=== PATIENT | female | born 1995 | race Caucasian/White ===

== ENCOUNTER 2020-02-27 12:55 | Outpatient (REF) | payer OTHER, SELFPAY ==
[2020-02-28 14:19] LABS: CT PCR NOT DETECTED (Not Detect.); NG PCR NOT DETECTED (Not Detect.)
[2020-03-01 09:42] LABS: BV Int Neg Control Negative (Negative); BV Int Pos Control Positive (Positive)
== END 2020-02-27 12:56 | disposition home or self-care (01) ==
LOC: HO.LAB 12:55
PROVIDERS: PCP Internal Medicine; Visit Provider Advanced Practice Midwife
DX: Z01.419 Encounter for gynecological examination (general) (routine) without abnormal findings (principal); Z20.2 Contact with and (suspected) exposure to infections with a predominantly sexual mode of transmission; Q89.9 Congenital malformation, unspecified; N89.8 Other specified noninflammatory disorders of vagina; Z30.09 Encounter for other general counseling and advice on contraception
CPT/HCPCS: 87480; 87491; 87510; 87591; 87660; 88142

== ENCOUNTER 2020-05-28 13:46 | Outpatient (REF) | payer OTHER, SELFPAY ==
--- NOTE | ~2020-05-28 | XR_ITS ---
EXAMINATION: XR SOFT TISSUE NECK CLINICAL INDICATION: Localized swelling, mass or lump COMPARISON: None TECHNIQUE: FINDINGS: Soft tissue films of the neck demonstrate a normal larynx, pharynx and upper trachea. No soft tissue swelling or opaque foreign body is demonstrated. Bony structures are normal. Visualized lung apices are clear. XR/XR soft tissue neck IMPRESSION: Unremarkable examination.
== END 2020-05-28 13:47 | disposition home or self-care (01) ==
LOC: HO.XRAY 13:46
PROVIDERS: PCP Physician Assistant; Visit Provider Nurse Practitioner Family
DX: R22.1 Localized swelling, mass and lump, neck (principal); R42 Dizziness and giddiness
CPT/HCPCS: 70360

== ENCOUNTER 2020-08-16 13:25 | Outpatient (REF) | payer OTHER, SELFPAY ==
[2020-08-16 16:08] LABS: Thyroid Stimulating Hormone 3.53 uIU/mL (0.32-4.0)
[2020-08-17 06:02] LABS: Thyroglobulin Antibodies <1 IU/mL (< or = 1); Thyroid Peroxidase Antibodies <1 IU/mL (<9)
== END 2020-08-16 13:26 | disposition home or self-care (01) ==
LOC: HO.LAB 13:25
PROVIDERS: PCP Internal Medicine; Referring Provider Internal Medicine; Visit Provider Internal Medicine Endocrinology, Diabetes & Metabolism
DX: E04.1 Nontoxic single thyroid nodule (principal)
CPT/HCPCS: 36415; 84439; 84443; 86376; 86800; 99202

== ENCOUNTER 2020-09-09 10:40 | Outpatient (REF) | payer OTHER, SELFPAY ==
--- NOTE | 2020-09-09 11:08 | PM.OP ---
Brief Operative Note Date of Service: 09/09/20 Pre-op diagnosis: Right side nodule Post-op diagnosis: same Procedure: This procedure was explained to the patient. Alternatives, risks and benefits were discussed. Written consent was obtained. After sterile preparation of the skin, fine-needle aspiration biopsy of right side thyroid nodule size 3.1 x 1.5 x 1.9 cm was performed under direct ultrasound guidance to confirm accurate needle placement. Three passes were performed with 27 gauge needles. Sample was submitted to cytology, initial cytology reading was adequate. 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 Patient tolerated procedure well. Aftercare instructions were provided. Impression: uncomplicated fine-needle aspiration biopsy of right side thyroid nodule under direct ultrasound guidance. Surgeon: Ramiro Berger MD Anesthesia: local (Lidocaine 1% 1 mL) Was an [employer] Machine Tender used for this Procedure?: No Estimated blood loss (mL): 0 Condition: stable Disposition: same day
== END 2020-09-09 10:41 | disposition home or self-care (01) ==
LOC: HO.US 10:40
PROVIDERS: Visit Provider Internal Medicine Endocrinology, Diabetes & Metabolism
DX: E04.1 Nontoxic single thyroid nodule (principal)
CPT/HCPCS: 10005; 88172; 88173

== ENCOUNTER → 2020-09-28 13:36 | Outpatient (BNVA) | payer OTHER, SELFPAY | PROVIDERS: PCP Internal Medicine; Visit Provider Internal Medicine Endocrinology, Diabetes & Metabolism | DX: E04.1 Nontoxic single thyroid nodule (principal) | CPT/HCPCS: 99212 ==

== ENCOUNTER 2020-10-05 12:52 | Outpatient (REF) | payer OTHER, SELFPAY ==
[2020-10-06 10:04] LABS: BV Int Neg Control Negative (Negative); BV Int Pos Control Positive (Positive)
== END 2020-10-05 12:53 | disposition home or self-care (01) ==
LOC: HO.LAB 12:52
PROVIDERS: PCP Internal Medicine; Visit Provider Advanced Practice Midwife
DX: R10.2 Pelvic and perineal pain (principal); N89.8 Other specified noninflammatory disorders of vagina
CPT/HCPCS: 87480; 87510; 87660; 99212

== ENCOUNTER 2021-03-29 15:08 | Emergency (ER) | payer OTHER, SELFPAY ==
[2021-03-29 15:17] VITALS: BP 104/68; PULSE 83; RESP 18; TEMP 36.9; O2SAT 100; BMI 23.4
[2021-03-29 15:57] LABS: COVID-19 Test Negative (Negative); IDNOW Serial# 9DD0AD1C
--- NOTE | 2021-03-29 17:42 | ED.URI ---
HPI - URI/Sore Throat General Chief Complaint: Upper Respiratory Symptoms Stated Complaint: cough Time Seen by Provider: 03/29/21 17:04 Source: patient Mode of arrival: ambulatory Limitations: no limitations History of Present Illness HPI Narrative: 25-year-old female presents to ED for coughing since Sunday. Patient states her son and daughter were sick (coughing) 1st last week Sunday with coughing and then got better and now she had symptoms. Patient states both her kids tested negative for COVID. Patient denies any chest pain, shortness of breath, swelling of lower extremities, coughing up blood, fever, chills, calf pain, recent long travel, birht control use or recent surgery. Patient states she is vaccinated against COVID. MD elicited complaint: cough Related Data Previous Rx's Medication Instructions Recorded ibuprofen 800 mg tablet 800 mg PO Q8H PRN 10 Days #30 tab 05/27/20 benzonatate 100 mg capsule 100 mg PO TID PRN 5 Days #15 cap 03/29/21 Allergies Allergy/AdvReac Type Severity Reaction Status Date / Time seasonal allergies Allergy Intermediate itchy Uncoded 03/29/21 17:27 Review of Systems Review of Systems: Yes all other systems are reviewed and are negative Constitutional: Constitutional: Reports as per HPI, Reports no additional constitutional complaints, Denies anorexia, Denies body ache(s), Denies fever(s), Denies frequent falls and Denies headache(s) Eyes: Eyes: Reports as per HPI and Reports no additional eye complaints ENT: Reports system reviewed and no additional complaints, except as documented, Reports as per HPI and Denies headache(s) Cardiovascular: Cardiovascular: Reports as per HPI, Reports no additional cardiovascular complaints, Denies chest pain, Denies chest pain at rest and Denies dyspnea Respiratory: Respiratory: Reports as per HPI, Reports no additional respiratory complaints, Reports cough and Denies dyspnea Gastrointestinal: Gastrointestinal: Reports as per HPI and Reports no additional gastrointestinal complaints Genitourinary: Genitourinary: Reports no additional female genitourinary complaints and Reports as per HPI Musculoskeletal: Musculoskeletal: Reports no additional musculoskeletal complaints and Reports as per HPI Neurologic: Reports system reviewed and no additional complaints, except as documented, Reports as per HPI, Denies frequent falls and Denies headache(s) Psychiatric: Psychiatric: Reports no additional psychiatric complaints and Reports as per HPI [facility] Past Medical History Medical History Goiter Migraine with aura Swollen neck Thyroid nodule Surgical History No history of previous surgery Family History Family History Mother Diabetes Thyroid disease Father No problems noted. Other Mental health disorder Social History Social History Housing: House Alcohol intake: never Patient Tobacco Use Status: Never used Tobacco Advance Directives: No Advance Directives Information Provided: No Current occupational status: unemployed Sexual orientation: Straight/Heterosexual Gender identity: Female Physical Exam Vital Signs: Vital Signs: Last Vital Signs Temp 98.4 F 03/29/21 15:17 Pulse 83 03/29/21 15:17 Resp 18 03/29/21 15:17 BP 104/68 03/29/21 15:17 Pulse Ox 100 03/29/21 15:17 BMI result Body Mass Index 23.4 Const: General: cooperative, healthy appearing, comfortable, no acute distress, well developed, alert, awake and Physically active Orientation/consciousness: patient oriented x3 HENMT: Head: Yes normal to inspection, Yes No palpable skull fracture present, Yes normocephalic, Yes atraumatic, Yes abrasion, No Acrocyanosis present, No Wilhelm's sign, No contusion, No cranial bruits, No hematoma, No laceration, No occipital foramen tenderness, No palpable skull fracture, No raccoon eyes, No scalp lesion, No scalp tenderness, No Temporal artery tenderness present and No periorbital ecchymosis Eyes: General: appearance normal, both eyes and all related structures Neck: Neck: Yes normal visual inspection, Yes full ROM, Yes no lymphadenopathy, Yes no meningeal signs, Yes trachea midline, Yes supple, No anterior neck swelling and No tender Chest: Chest palpation & inspection: normal inspection of the chest and normal palpation of entire chest wall Resp: Effort & Inspection: normal respiratory effort and able to speak in complete sentences Auscultation: clear to auscultation bilaterally Cardio: Jugular venous distension: no JVD Heart sounds: S1 normal heart sound present and S2 normal heart sound present GI: Inspection: Yes normal to inspection and No abdominal wall ecchymosis Palpation (GI): Soft to palpation, not firm, nontender, no guarding and not rigid : General: No CVA tenderness and Yes no CVA tenderness Back/Spine/Pelvis: Back: no CVA tenderness, No CVA tenderness and No back tenderness Skin: General skin exam: no rashes or lesions noted and elasticity normal Neuro: General: patient oriented x3, gait normal, no meningeal signs and CN's II-XI intact bilaterally Cranial nerves: Yes CN's II-XII intact bilaterally Extrem: Other: Lower extremities negative for swelling, pitting edema, or calf tenderness. General: Yes normal to inspection and Yes full ROM Psych: Appearance: grossly normal, well kempt and not disheveled Course Course Course Narrative: COVID [place] was sent. Reevaluation(s) Reevaluation #1: COVID swab came back negative. Vital signs are stable. Lungs are clear. Presently no indication for chest x-ray. Patient not in any distress. Patient informed although she has a negative COVID test she may need to get retested for COVID is 72 hours if symptoms not improved. Patient states her kids are asymptomatic. Not suspecting PE, CHF, Pneumonia or any MD. patient does not want time off from work but she states she will get retested.. Time: 17:49 MDM - URI/Sore Throat MDM Narrative Medical decision making narrative: URI Lab Data Labs: Lab Results 03/29/21 Range/Units 15:25 COVID-19 ([facility]) Negative (Negative) COVID-19 Clin Com See Note Discharge Plan Discharge Clinical Impression: URI (upper respiratory infection) Patient Disposition: Home, Self-Care Instructions: Upper Respiratory Infection (ED) Additional Instructions: Your COVID swab came back negative. This may be a false negative. Recommend retesting in 72 hours if symptom persists. Return to the ED for any chest pain, shortness of breath, weakness, dizziness, coughing up blood, swelling of lower extremities, calf pain, shortness of breath on exertion, fever, chills, or any other concerning symptoms. Please follow-up with primary care provider Prescriptions: New benzonatate 100 mg capsule 100 mg PO TID PRN (Reason: cough) 5 Days Qty: 15 RF: 0 No Action ibuprofen 800 mg tablet 800 mg PO Q8H PRN (Reason: pain) 10 Days Qty: 30 RF: 0 Stand Alone Forms: Work/School Release Interventions: ED Discharge Assessment Last Done: 03/29/21 18:12 Discharge Date/Time: 03/29/21 18:13 Print Language: Thai
== END 2021-03-29 18:13 | disposition home or self-care (01) ==
PROVIDERS: Emergency Provider Emergency Medicine Emergency Medical Services
DX: J06.9 Acute upper respiratory infection, unspecified (principal); R05.9 Cough, unspecified; Z79.899 Other long term (current) drug therapy; Z20.822 Contact with and (suspected) exposure to COVID-19
CPT/HCPCS: 36415; 87635; 99283

== ENCOUNTER 2021-06-13 13:09 | Outpatient (REF) | payer OTHER, SELFPAY ==
[2021-06-13 14:01] LABS: Hematocrit 38.3 % (37.0-47.0); Hemoglobin 12.1 g/dl (12.0-16.0); Mean Corpuscular HGB Conc 31.6 g/dl (31.0-35.0); Mean Corpuscular Hemoglobin 28.5 pg (27.0-33.0); Mean Corpuscular Volume 90.1 fL (80.0-98.0); Mean Platelet Volume 10.2 fL (9.4-12.3); Platelet Count 315 X10*3/uL (160-400); Red Blood Count 4.25 X10*6/uL (4.20-5.50); Red Cell Distribution Width 12.3 % (11.0-16.0); White Blood Count 6.9 X10*3/uL (4.8-10.8)
[2021-06-13 14:36] LABS: Anion Gap 12 (12-20); Blood Urea Nitrogen 15 mg/dL (9-16); Calcium 9.5 mg/dL (8.4-10.2); Carbon Dioxide 25 mmol/L (22-29); Chloride 106 mmol/L (96-108); Estimated Glomerular Filt Rate > 60; Glucose Random 111 mg/dL (60-115); Iron 76 mcg/dL (30-160); Percent Iron Saturation 18 % (15-50); Potassium 4.2 mmol/L (3.3-5.1); Sodium 139 mmol/L (135-145); Total Iron Binding Capacity 415 mcg/dL (228-428); Unsaturated Iron Binding 339 ug/dL
[2021-06-13 14:56] LABS: TSH reflex Free T4 2.78 uIU/mL (0.32-4.0); Vitamin D 25-OH Total 8.7 ng/mL (>30)
[2021-06-14 13:02] LABS: Calcium (PTHI) 9.4 mg/dL (8.6-10.2); PTHI 54 pg/mL (14-64)
== END 2021-06-13 13:10 | disposition home or self-care (01) ==
LOC: HO.LAB 13:09
PROVIDERS: PCP Physician Assistant; Visit Provider Physician Assistant
DX: R22.1 Localized swelling, mass and lump, neck (principal); R53.83 Other fatigue; D50.9 Iron deficiency anemia, unspecified
CPT/HCPCS: 36415; 80048; 82306; 83540; 83970; 84443; 85027

== ENCOUNTER 2021-07-06 16:21 | Outpatient (REF) | payer OTHER, SELFPAY ==
--- NOTE | ~2021-07-06 | US_ITS ---
EXAMINATION: US THYROID CLINICAL INFORMATION: Nontoxic goiter, unspecified. COMPARISON: Ultrasound-guided thyroid biopsy 09/09/2020. TECHNIQUE: Linear transducer grayscale and color Doppler examination with attention to the region of the thyroid. FINDINGS: SIZE: Measurements of the thyroid lobes and nodules are given in sagittal, anteroposterior and transverse dimensions respectively. Right Thyroid Lobe: 4.7 x 1.8 x 2.6 cm, volume 11.2 mL. Parenchyma: The gland echotexture is homogeneous. Thyroid vascularity is normal. Left Thyroid Lobe: 4.1 x 0.7 x 1.1 cm, volume 1.5 mL. Parenchyma: The gland echotexture is homogeneous. Thyroid vascularity is normal. Isthmus: 0.2 cm in maximum AP dimension. Estimated total number of nodules greater than or equal to 1 cm: 1. Cell Changer nodules are described as follows: 1. Location: Right mid pole. Size: 2.9 x 1.3 x 2.2 cm, volume 4.2 mL. Previous: 3.1 x 1.5 x 1.9 cm, volume 4.6 mL. Nodule characteristics: Composition: Solid/almost completely solid (2). Echogenicity: Hypoechoic (2). Shape: Not taller than wide (0). Margins: Smooth (0). Echogenic Foci: None (0). ACR TI-RADS total points: 4 ACR TI-RADS category: 4 NODES: No lymphadenopathy is seen in the tissue surrounding the thyroid gland. US/US thyroid IMPRESSION: Enlarged right lobe. Stable right thyroid nodule. ACR TI-RADS RECOMMENDATION REFERENCE: Ultrasound-guided fine-needle aspiration, followup ultrasound, no further follow up. * TR1 (0 point) and TR 2 (2 points): No FNA or follow up * TR3 (3 points): FNA if more than or equal to 2.5 cm in maximum dimension, followup ultrasound in 1, 3 and 5 years if 1.5 to 2.4 cm in maximum dimension. * TR4 (4-6 points): FNA if more than or equal to 1.5 cm in maximum dimension, followup ultrasound in 1, 2, 3 and 5 years if 1 to 1.4 cm in maximum dimension. * TR5 (more than or equal to 7 points): FNA if more than or equal to 1 cm in maximum dimension, followup ultrasound every year for 5 years if 0.5 to 0.9 cm in maximum dimension. * TR3, TR4 or TR5 nodules that are below the size threshold for follow up receive no follow up.
== END 2021-07-06 16:22 | disposition home or self-care (01) ==
LOC: HO.US 16:21
PROVIDERS: PCP Physician Assistant; Visit Provider Physician Assistant
DX: E04.9 Nontoxic goiter, unspecified (principal)
CPT/HCPCS: 76536

== ENCOUNTER 2022-05-18 12:52 | Outpatient (REF) | payer OTHER, SELFPAY ==
[2022-05-18 14:08] LABS: MANUAL DIFF FLAG NO
[2022-05-18 15:06] LABS: Basophils Absolute Auto 0.1 X10*3/uL (0.0-0.2); Basophils Percent Auto 0.7 % (0-2); Eosinophils Absolute Auto 0.2 X10*3/uL (0.0-0.4); Eosinophils Percent Auto 2.3 % (0-4); Hematocrit 37.9 % (37.0-47.0); Hemoglobin 11.9 g/dl (12.0-16.0); Imm Gran Abs Auto 0.03 X10*3/uL (0.00-0.03); Imm Gran Pct Auto 0.4 % (0.0-0.4); Lymphocytes Absolute Auto 1.6 X10*3/uL (1.2-4.9); Lymphocytes Percent Auto 21.3 % (20-40); Mean Corpuscular HGB Conc 31.4 g/dl (31.0-35.0); Mean Corpuscular Hemoglobin 27.6 pg (27.0-33.0); Mean Corpuscular Volume 87.9 fL (80.0-98.0); Mean Platelet Volume 10.3 fL (9.4-12.3); Monocytes Absolute Auto 0.5 X10*3/uL (0.1-1.2); Monocytes Percent Auto 6.3 % (2-11); Neutrophils Absolute Auto 5.2 x10*3/uL (2.0-8.3); Platelet Count 295 X10*3/uL (160-400); Red Blood Count 4.31 X10*6/uL (4.20-5.50); Red Cell Distribution Width 12.2 % (11.0-16.0); White Blood Count 7.5 X10*3/uL (4.8-10.8)
[2022-05-18 15:37] LABS: Anion Gap 12 (12-20); Blood Urea Nitrogen 13 mg/dL (9-16); Calcium 9.5 mg/dL (8.4-10.2); Carbon Dioxide 25 mmol/L (22-29); Chloride 106 mmol/L (96-108); Estimated Glomerular Filt Rate > 60; Glucose Random 112 mg/dL (60-115); Potassium 3.6 mmol/L (3.3-5.1); Sodium 139 mmol/L (135-145)
[2022-05-18 15:47] LABS: TSH reflex Free T4 2.49 uIU/mL (0.32-4.0)
[2022-05-18 15:48] LABS: Free T4 (Free Thyroxine) 0.74 ng/dL (0.71-1.85); Thyroid Stimulating Hormone 2.52 uIU/mL (0.32-4.0)
== END 2022-05-18 12:53 | disposition home or self-care (01) ==
LOC: HO.LAB 12:52
PROVIDERS: Absent Provider Nurse Practitioner Family; PCP Physician Assistant; Visit Provider Internal Medicine
DX: E04.1 Nontoxic single thyroid nodule (principal)
CPT/HCPCS: 36415; 80048; 82306; 84439; 84443; 85025; 99212

== ENCOUNTER 2022-06-22 16:20 | Outpatient (REF) | payer OTHER, SELFPAY ==
--- NOTE | ~2022-06-22 | US_ITS ---
EXAMINATION: US THYROID CLINICAL INFORMATION: Nontoxic single thyroid nodule. COMPARISON: Ultrasound soft tissue head/neck thyroid dated 07/06/2021. XR soft tissue neck 05/28/2020. TECHNIQUE: Linear transducer grayscale and color Doppler examination with attention to the region of the thyroid. FINDINGS: SIZE: Measurements of the thyroid lobes and nodules are given in sagittal, anteroposterior and transverse dimensions respectively. Right Thyroid Lobe: 4.7 x 2.1 x 2.1 cm, volume 10.7 mL. Previously 4.7 x 1.8 x 2.6 cm, volume 11.2 mL. Parenchyma: The gland echotexture is homogeneous. Thyroid vascularity is increased. Left Thyroid Lobe: 3.6 x 0.9 x 0.9 cm, volume 1.5 mL. Previously 4.1 x 0.7 x 1.1 cm, volume 1.5 mL. Parenchyma: The gland echotexture is homogeneous. Thyroid vascularity is normal. Isthmus: 0.2 cm in maximum AP dimension. Previously 0.2 cm. Estimated total number of nodules greater than or equal to 1 cm: 1. Molded Candles Wicker nodules are described as follows: 1. Location: Right mid. Size: 3.2 x 2.3 x 1.8 cm, volume 6.8 mL. Previously: 2.9 x 1.3 x 2.2 cm, volume 4.2 mL. Nodule characteristics: Composition: Solid (2). Echogenicity: Cannot be determined (1). Shape: Taller than wide (3). Margins: Smooth (0). Echogenic Foci: None (0). ACR TI-RADS total points: 6 Previous: 4 ACR TI-RADS category: 4 Previous: 4 Significant change in size (>/= 20% in 2 dimensions and minimal increase of 2 mm or 50% or greater increase in volume): Yes Change in features: No Change in ACR TI-RADS risk category: No NODES: No lymphadenopathy is seen in the tissue surrounding the thyroid gland. US/US thyroid IMPRESSION: There is a 3.2 cm right-sided thyroid nodule which has increased in size from 2.9 cm in 2021. If biopsy has not already been performed, this is recommended. ACR TI-RADS RECOMMENDATION REFERENCE: Ultrasound-guided fine-needle aspiration, followup ultrasound, no further follow up. * TR1 (0 point) and TR2 (2 points): No FNA or follow up * TR3 (3 points): FNA if more than or equal to 2.5 cm in maximum dimension, followup ultrasound in 1, 3 and 5 years if 1.5 to 2.4 cm in maximum dimension. * TR4 (4-6 points): FNA if more than or equal to 1.5 cm in maximum dimension, followup ultrasound in 1, 2, 3 and 5 years if 1 to 1.4 cm in maximum dimension. * TR5 (more than or equal to 7 points): FNA if more than or equal to 1 cm in maximum dimension, followup ultrasound every year for 5 years if 0.5 to 0.9 cm in maximum dimension. * TR3, TR4 or TR5 nodules that are below the size threshold for follow up receive no follow up.
== END 2022-06-22 16:21 | disposition home or self-care (01) ==
LOC: HO.US 16:20
PROVIDERS: PCP Physician Assistant; Visit Provider Internal Medicine
DX: E04.1 Nontoxic single thyroid nodule (principal)
CPT/HCPCS: 76536

== ENCOUNTER 2022-09-04 14:06 | Outpatient (REF) | payer OTHER, SELFPAY ==
[2022-09-04 16:02] LABS: Lipase 31 U/L (8-78)
[2022-09-04 16:36] LABS: Folate 11.6 ng/mL (> or = 4.0); Vitamin B12 296 pg/mL (200-900)
[2022-09-09 15:53] LABS: Vitamin D 25-OH, D2 <4 ng/mL; Vitamin D 25-OH, D3 22 ng/mL; Vitamin D 25-OH, Total 22 ng/mL (30-100)
[2022-09-11 13:42] LABS: Transglutaminase Ab IgG 5.1 U/mL; Transglutaminase IgA <1.0 U/mL
== END 2022-09-04 14:07 | disposition home or self-care (01) ==
LOC: HO.LAB 14:06
PROVIDERS: PCP Physician Assistant; Visit Provider Nurse Practitioner Family
DX: R10.9 Unspecified abdominal pain (principal); R19.7 Diarrhea, unspecified; E55.9 Vitamin D deficiency, unspecified; K21.9 Gastro-esophageal reflux disease without esophagitis; R10.13 Epigastric pain; K59.04 Chronic idiopathic constipation; K58.2 Mixed irritable bowel syndrome
CPT/HCPCS: 36415; 82306; 82607; 82746; 83690; 86364; 99202

== ENCOUNTER 2022-09-17 11:50 | Outpatient (REF) | payer OTHER, SELFPAY ==
[2022-09-28 21:33] LABS: Pancreatic Elastase-1 >500 mcg/g
== END 2022-09-17 11:51 | disposition home or self-care (01) ==
LOC: HO.LNP 11:50
PROVIDERS: Visit Provider Nurse Practitioner Family
DX: R10.9 Unspecified abdominal pain (principal); K21.9 Gastro-esophageal reflux disease without esophagitis
CPT/HCPCS: 82656; 87338

== ENCOUNTER 2022-09-19 11:47 | Outpatient (REF) | payer OTHER, SELFPAY | END 2022-09-19 11:48 | disposition home or self-care (01) | LOC: HO.LNP 11:47 | PROVIDERS: Visit Provider Nurse Practitioner Family | DX: Z13.89 Encounter for screening for other disorder (principal) ==

== ENCOUNTER 2022-11-03 15:24 | Outpatient (AMB) | payer OTHER, SELFPAY ==
[2022-11-03 15:43] VITALS: BP 121/75; PULSE 79; BMI 24.1
--- NOTE | 2022-11-03 15:43 | A.OFFVIS_ITS ---
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 Famotidine has not been working for her we will changes to sucralfate. Patient was also instructed to avoid dietary triggers in late night snacking. Staying upright for minimum 3 hours after meals discussed with patient Postprandial epigastric pain Postprandial epigastric pain and distension. Discussed with patient diet change. Will rule out H pylori, celiac, vitamin deficiency. Patient also needs to move her bowels better Chronic idiopathic constipation . Start MiraLax daily. If patient continues to be constipated we can add Senokot. Patient will try this for 1 week and will call our office next week if she continues to be constipated. IBS (irritable bowel syndrome) Postprandial abdominal bloating. Low FODMAP diet discussed with patient. List of food to avoid as well as list of food recommended given to patient. Patient did notice that certain food makes her feel worse. She already tried to eliminate certain stuff and will not introduce it back to her diet due to severe epigastric discomfort. Patient is constipated for the most part, however occasionally she will have diarrhea probably related to the food that she eats. Will also check for pancreatic insufficiency. Will check her lipase as well. I will see her in 2 months so we can book upper endoscopy for her. Patient is agreeable to this plan and verbalizes understanding of instructions. She was given the opportunity to ask questions and all questions answered. ? Thank you for allowing me to participate in her care Plan Orders Orders Pancreatic Elastase-1 Today R10.9 H pylori Ag Stool Today K21.9 Transglutaminase Ab IgG Today R10.9 Transglutaminase IgA Today R10.9 Lipase Today R10.9 Vitamin D 25-OH (D2 and D3) Today E55.9 Vitamin B12 and Folate Today R19.7 Medications New polyethylene glycol 3350 (Miralax) 17 grams PO DAILY 510 grams 2RF sucralfate 1 g PO BEDTIME 30 tabs 1RF R19.7 Discontinued famotidine Discontinued Reason: Doctor's Order 20 mg PO BID 30 days 60 tabs 1RF K21.9 * TODAY'S VISIT: Patient is here today for follow-up and to discuss lab results. Patient reports to be feeling little better, moving her bowels well. Occasional postprandial abdominal bloating and epigastric discomfort. Patient is taking pantoprazole in the morning and sucralfate at bedtime. Patient states that she is moving her bowels occasionally using MiraLax. Patient denies any nausea or vomiting. Denies any dyspepsia, dysphagia or odynophagia. Patient denies any nausea or vomiting. Denies any abdominal pain, diarrhea. Patient denies any melena, hematochezia, unintentional weight loss or ribbon like stools. Lab work discussed with patient. Patient was encouraged to continue vitamin-D as her level was low normal. [facility] Medical History Goiter Migraine with aura Swollen neck Thyroid nodule Vitamin D deficiency Surgical History History of esophagogastroduodenoscopy (EGD) Family History Mother Diabetes Thyroid disease Father No problems noted. Other Mental health disorder Social History Housing: House Alcohol intake: never Patient Tobacco Use Status: Never used Tobacco Second Hand Smoke Exposure: No Current occupational status: employed and unemployed Sexual orientation: Straight/Heterosexual Gender identity: Female Cognitive needs: No Hearing needs: No Vision needs: No Female Reproductive History Menstrual Age of Menarche: 13 Review of Systems Const Denies weight gain and Denies weight loss ENT Reports no additional complaints, Denies dysphagia and Denies odynophagia Card Reports no additional complaints Resp Reports no additional complaints GI Reports abdominal pain, Denies belching, Denies melena, Reports bloating, Denies change in bowel habits, Denies dysphagia, Denies excessive flatus, Denies dyspepsia, Reports heartburn, Denies diarrhea, Denies loose stools, Denies nausea, Denies odynophagia and Denies vomiting Reports no additional complaints Musc Reports no additional complaints Neuro Reports no additional complaints Psych Reports no additional complaints Endo Reports no additional complaints Physical Exam Vital Signs: Last Vital Signs Pulse 79 11/03/22 15:43 BP 121/75 11/03/22 15:43 BMI result Body Mass Index 24.1 Const General: healthy appearing, no acute distress and well developed Nutritional Appearance: well nourished Orientation/consciousness: patient oriented x3 HEENT Head: Yes normal to inspection, Yes normocephalic and Yes atraumatic Face and sinus: Yes normal facial exam Mouth: Normal oral and palatal mucosa present Throat: Yes posterior oropharynx normal, Yes tonsils normal and Yes uvula midline Eyes General: appearance normal, both eyes and all related structures Neck Neck: Yes normal visual inspection, Yes full ROM and Yes trachea midline Thyroid: Thyroid normal Resp Effort & Inspection: normal respiratory effort, able to speak in complete sentences, no tracheal deviation and symmetric chest movement Auscultation: clear to auscultation bilaterally Cardio Rate: regular rate Heart sounds: S1 normal heart sound present and S2 normal heart sound present GI Inspection: Yes normal to inspection and No distended Palpation (GI): Soft to palpation, not firm, nontender and No hepatosplenomegaly present Auscultation: normal bowel sounds General: Yes no CVA tenderness Back/Spine/Pelvis Back: no CVA tenderness Skin General skin exam: elasticity normal, turgor normal and dry skin Neuro General: patient oriented x3 Psych Appearance: grossly normal Mental Status: mental status grossly normal Speech and movement: Normal speech and movement present Results Reviewed Results Reviewed: Laboratory Tests 09/04/22 09/04/22 09/04/22 15:05 15:05 15:05 Lipase 31 Vitamin B12 296 25-OH Vitamin D Total 22 L Folate 11.6 Stool Pancreat Elastase Tiss Transglutamin IgG 5.1 Tiss Transglutamin IgA <1.0 09/17/22 13:00 Lipase Vitamin B12 25-OH Vitamin D Total Folate Stool Pancreat Elastase >500 Tiss Transglutamin IgG Tiss Transglutamin IgA Assessment & Plan Assessment & Plan (1) GERD (gastroesophageal reflux disease): Code(s): K21.9 - Gastro-esophageal reflux disease without esophagitis Qualifiers: Esophagitis presence: without esophagitis Qualified Code(s): K21.9 - Gastro-esophageal reflux disease without esophagitis Plan: Continue pantoprazole in the morning and sucralfate at bedtime. Patient was encouraged to avoid dietary triggers and late night snacking. Staying upright for minimum 3 hours after meals discussed with patient. Please schedule patient for upper endoscopy to further evaluate as patient still has epigastric pain (2) Postprandial epigastric pain: Code(s): R10.13 - Epigastric pain Plan: Patient reports postprandial epigastric pain occasionally. Schedule upper endoscopy. Continue PPI and sucralfate (3) IBS (irritable bowel syndrome): Code(s): K58.9 - Irritable bowel syndrome without diarrhea Qualifiers: Irritable bowel syndrome type: without diarrhea Qualified Code(s): K58.9 - Irritable bowel syndrome without diarrhea Plan: Postprandial abdominal bloating. We ruled out pancreatic insufficiency. Continue avoiding dietary triggers. FODMAP diet discussed with patient again and encouraged to try to follow. List of food recommended as well as list of food to avoid given to patient. I will see patient after the procedure, sooner on as needed basis. Coding Level of Care Code Est Pt Level 3 (85817) Diagnoses GERD (gastroesophageal reflux disease) K21.9 Esophagitis presence: without esophagitis Postprandial epigastric pain R10.13 IBS (irritable bowel syndrome) K58.9 Irritable bowel syndrome type: without diarrhea Time Spent (min) 30 Comment 20 minutes spent with patient and additional 10 minutes spent reviewing her records
== END 2022-11-03 16:19 | disposition home or self-care (01) ==
PROVIDERS: PCP Physician Assistant; Visit Provider Nurse Practitioner Family
DX: K21.9 Gastro-esophageal reflux disease without esophagitis (principal); R10.13 Epigastric pain; K58.9 Irritable bowel syndrome, unspecified
CPT/HCPCS: 99213

== ENCOUNTER → 2022-11-03 15:24 | Outpatient (BNVA) | payer OTHER, SELFPAY | PROVIDERS: PCP Physician Assistant; Visit Provider Nurse Practitioner Family | DX: K21.9 Gastro-esophageal reflux disease without esophagitis (principal); K58.9 Irritable bowel syndrome, unspecified; R10.13 Epigastric pain | CPT/HCPCS: 99212 ==

== ENCOUNTER 2023-03-23 13:08 | Day surgery (SDC) | payer OTHER, SELFPAY ==
--- NOTE | 2023-03-22 10:39 | P.CONAN_ITS ---
Documented by User: Jaclyn Devi NP 03/22/23 10:39 HPI - Anesthesia Eval Consult details Narrative: 27yo F for PMFSH Active Problems Active Problems: All Active Problems (Updated 07/19/22 @ 09:16 by Orville Andrews PA-C) Anxiety (Acute) GERD (gastroesophageal reflux disease) (Acute) Vitamin D deficiency (Acute) Gastritis (Acute) JEANNA (generalized anxiety disorder) (Acute) Frequent headaches (Acute) Fatigue (Acute) Excess skin of abdominal wall (Acute) Screening for diabetes mellitus (DM) (Acute) Annual physical exam (Acute) Vaginal odor (Acute) Vaginal discharge (Acute) Pelvic pain in female (Acute) Thyroid nodule (Acute) Swollen neck (Acute) Goiter (Acute) control counseling (Acute) Umbilical abnormality (Acute) Vaginal irritation (Acute) Potential exposure to STD (Acute) Well woman exam with routine gynecological exam (Acute) Past Medical History Medical History Goiter Migraine with aura Swollen neck Thyroid nodule Vitamin D deficiency Family History Family History Mother Diabetes Thyroid disease Father No problems noted. Other Mental health disorder Surgical History Surgical History History of esophagogastroduodenoscopy (EGD) Social History Social History Housing: House Alcohol intake: never Patient Tobacco Use Status: Never used Tobacco Second Hand Smoke Exposure: No Use of substances other than those prescribed or required for medical reasons: No Are you DNR?: No Advance Directives: No Advance Directives Information Provided: Yes Current occupational status: employed and unemployed Sexual orientation: Straight/Heterosexual Gender identity: Female Cognitive needs: No Hearing needs: No Vision needs: No Meds Allergies Allergy/AdvReac Type Severity Reaction Status Date / Time sertraline AdvReac Intermediate Fatigued Verified 03/23/23 13:43 seasonal allergies Allergy Intermediate Itching Uncoded 03/23/23 13:43 Assessment and Plan Assessment Anesthesia Assessment: Chart Reviewed Documented by User: Estefany Horne MD 03/23/23 14:20 [facility] Past Medical History Medical History Goiter Migraine with aura Swollen neck Thyroid nodule Vitamin D deficiency Family History Family History Mother Diabetes Thyroid disease Father No problems noted. Other Mental health disorder Family history of problems with anesthesia: No Surgical History Surgical History History of esophagogastroduodenoscopy (EGD) History of Problems with Anesthesia: No Social History Social History Housing: House Alcohol intake: never Patient Tobacco Use Status: Never used Tobacco Second Hand Smoke Exposure: No Use of substances other than those prescribed or required for medical reasons: No Are you DNR?: No Advance Directives: No Advance Directives Information Provided: Yes Current occupational status: employed and unemployed Sexual orientation: Straight/Heterosexual Gender identity: Female Cognitive needs: No Hearing needs: No Vision needs: No Meds Allergies Allergy/AdvReac Type Severity Reaction Status Date / Time sertraline AdvReac Intermediate Fatigued Verified 03/23/23 13:43 seasonal allergies Allergy Intermediate Itching Uncoded 03/23/23 13:43 Exam Airway Mallampati Class: II TM Dist: >3cm Neck ROM: Full Heart: rrr Lungs: cta Assessment and Plan Assessment Anesthesia Assessment: Anesthesia Plan Discussed Final Anesthetic Review Family History of Problems with Anesthesia: No History of Problems with Anesthesia: No NPO: Yes ASA Class: II Final Preanesthetic Review: No Changes in Pt Med Stat, Meds/Allgs Chart Reviewed and Consent Obtained/Reviewed Patient Risk: Intermediate Procedure Risk: Intermediate Anesthetic Plan Anesthetic Plan: MAC: Disposition: Standard PACU
[2023-03-23 13:12] VITALS: BMI 23.3
[2023-03-23 13:33] LABS: UPreg QC Valid YES; Urine Pregnancy NEGATIVE (NEGATIVE)
[2023-03-23 13:41] VITALS: BP 121/75; PULSE 71; RESP 16; TEMP 36.4; O2SAT 99
[2023-03-23] MEDS: Lactated Ringers 1,000 ML 100 ML IVCONT (13:41)
--- NOTE | 2023-03-23 13:46 | MHC.SHP ---
Pre-Procedural Eval Section A Date of Service: 03/23/23 The patient is an INPATIENT: No The History & Physical has been completed within 30 days and I have reviewed it.: No Section B Chief Complaint: GERD, postprandial abd bloating and discomfort Relevant Family History (Specify if Yes): No Relevant Social History: None Present Medications: see Short Stay Collaborative assessment Medical History: Significant History (Goiter Migraine with aura Swollen neck Thyroid nodule Vitamin D deficiency) History of Previous Operations: Relevant previous surgery/procedure and date(s) (History of EGD) Allergies: Allergies Allergy/AdvReac Type Severity Reaction Status Date / Time sertraline AdvReac Intermediate Fatigued Verified 03/23/23 13:43 seasonal allergies Allergy Intermediate Itching Uncoded 03/23/23 13:43 Review of Systems Sugical H&P ROS: Negative: Constitution, Cardiovascular, Respiratory and Gastrointestinal Exam Surgical H&P Exam: Normal: Heart, Normal: Lungs, Normal: Extremities and Normal: Abdomen Plan Diagnosis/Plan: Unchanged I have reviewed the history and physical and performed a pertinent physical examination on my patient. No changes have occurred unless specified. Time Spent With Patient Time: Total time managing care of this patient today ____ minutes.
--- NOTE | 2023-03-23 14:40 | PC.NURSE ---
Care transitioned to Luis M (BLOCK MASON)
--- NOTE | 2023-03-23 15:13 | W.PM.OPN ---
Operative Note Operative Note Date of Service: 03/23/23 Narrative: FLEXIBLE TRANSORAL UPPER GASTROINTESTINAL ENDOSCOPY WITH BIOPSIES Pre-op diagnosis: GERD, abdominal pain and postprandial bloating Post-op diagnosis: GERD, gastritis, nodule duodenal bulb Endoscopist:? Jarvis Agrawal MD Anesthesia:?MAC Consent: Indications for the procedure and potential complications of bleeding, perforation, reaction to medications and missed diagnosis were discussed with the patient and informed consent was obtained. Instrument: Olympus GIF H 190 mid size upper endoscope Monitoring: Vital signs and clinical assessment, continuous EKG monitoring, Pulse oximetry, Carbon Dioxide monitoring and blood pressure monitoring were done throughout the procedure. Procedure: The patient was placed in the left lateral decubitis position and pre-procedure medications were administered and a bite block was placed. The endoscope was inserted into the mouth and advanced under direct vision to the third part of duodenum. A careful inspection was made as the upper endoscope was withdrawn including a retroflexed examination of the proximal stomach; Findings and interventions are described below. Findings: Larynx: Normal Esophagus: GE junction at 35 cms. No esophagitis or Hand's. Stomach: Mild gastric antral erythema. Biopsies were obtained. Grade 2 flap valve on retroflexed examination of the cardia. Duodenum: A few 5 to 10 mm benign appearing nodules in the posterior wall of the bulb - biopsied. Normal descending duodenum. Biopsies were obtained from 3rd part of the duodenum to check for celiac sprue Intervention: Biopsies as noted above Impression and Post Procedure Diagnosis: Endoscopy Findings: STOMACH: Mild antral gastritis DUODENUM: A few 5 to 10 mm benign appearing nodules in the posterior wall of the bulb - likely hyperplasia of Nancy's glands. Plan: Await pathology results Patient has an appointment on 04/02/23 in the GI Clinic with Holly Diehl FNP-BC. Above findings were reviewed with the patient and GERD handouts was given in the discharge area
[2023-03-23 15:45] VITALS: BP 97/49; PULSE 92; RESP 16; TEMP 36.4; O2SAT 96
[2023-03-23 16:00] VITALS: BP 94/56; PULSE 79; RESP 16; O2SAT 98
[2023-03-23 16:15] VITALS: BP 116/80; PULSE 86; RESP 18; TEMP 36.7; O2SAT 99
[2023-03-23 16:30] VITALS: BP 118/82; PULSE 83; RESP 18; TEMP 36.4; O2SAT 97
== END 2023-03-23 16:34 | disposition home or self-care (01) ==
PROVIDERS: Nurse Practitioner; PCP Physician Assistant; Visit Provider Internal Medicine Gastroenterology
PROC: 0DJ08ZZ Inspection of Upper Intestinal Tract, Via Natural or Artificial Opening Endoscopic (ICD-10-PCS; CPT 43235; principal; 2023-03-23 14:50)
DX: K21.9 Gastro-esophageal reflux disease without esophagitis (principal); K29.50 Unspecified chronic gastritis without bleeding; R14.0 Abdominal distension (gaseous); K31.7 Polyp of stomach and duodenum; E04.9 Nontoxic goiter, unspecified; E04.1 Nontoxic single thyroid nodule; E55.9 Vitamin D deficiency, unspecified; G43.109 Migraine with aura, not intractable, without status migrainosus; Z79.899 Other long term (current) drug therapy; Z88.8 Allergy status to other drugs, medicaments and biological substances
CPT/HCPCS: 43239; 81025; 88305; 88307; 88342; J2704

== ENCOUNTER → 2023-03-23 13:08 | Outpatient (BNV) | payer OTHER, SELFPAY | PROVIDERS: PCP Physician Assistant; Visit Provider Internal Medicine Gastroenterology | DX: K21.9 Gastro-esophageal reflux disease without esophagitis (principal); K29.70 Gastritis, unspecified, without bleeding; K31.89 Other diseases of stomach and duodenum | CPT/HCPCS: 43239 ==

== ENCOUNTER 2023-04-02 16:21 | Outpatient (AMB) | payer OTHER, SELFPAY ==
--- NOTE | 2023-04-02 16:25 | MHC.OFFVIS ---
Intake Vital Signs 04/02/23 16:27 Height 4 ft 11 in Weight 114 lb 10.246 oz BMI 23.2 BP 127/82 Blood Pressure Location Lt brachial Position Sitting Pulse 76 Intake Visit Reasons: S/P EGD; Dr. Agrawal Intake Note: Patient presents to in office visit today in EGD follow up. CC: Patient underwent EGD on 03/23/[address] Agrawal. Patient reports she continues to have constipation and occasional epigastric pain. Denies other GI concerns today. Allergies sertraline Adverse Reaction (Intermediate, Verified 04/10/23 16:34) Fatigued seasonal allergies Allergy (Intermediate, Uncoded 04/10/23 15:59) Itching HPI S/P EGD; Dr. Agrawal HPI Details LAST VISIT GERD (gastroesophageal reflux disease) Continue pantoprazole in the morning and sucralfate at bedtime. Patient was encouraged to avoid dietary triggers and late night snacking. Staying upright for minimum 3 hours after meals discussed with patient. Please schedule patient for upper endoscopy to further evaluate as patient still has epigastric pain Postprandial epigastric pain Patient reports postprandial epigastric pain occasionally. Schedule upper endoscopy. Continue PPI and sucralfate IBS (irritable bowel syndrome) Postprandial abdominal bloating. We ruled out pancreatic insufficiency. Continue avoiding dietary triggers. FODMAP diet discussed with patient again and encouraged to try to follow. List of food recommended as well as list of food to avoid given to patient. I will see patient after the procedure, sooner on as needed basis. UPPER ENDOSCOPY Findings: Larynx: Normal Esophagus: GE junction at 35 cms. No esophagitis or Hand's. Stomach: Mild gastric antral erythema. Biopsies were obtained. Grade 2 flap valve on retroflexed examination of the cardia. Duodenum: A few 5 to 10 mm benign appearing nodules in the posterior wall of the bulb - biopsied. Normal descending duodenum. Biopsies were obtained from 3rd part of the duodenum to check for celiac sprue Intervention: Biopsies as noted above Impression and Post Procedure Diagnosis: Endoscopy Findings: STOMACH: Mild antral gastritis DUODENUM: A few 5 to 10 mm benign appearing nodules in the posterior wall of the bulb - likely hyperplasia of Nancy's glands. PATHOLOGY RESULTS: Diagnosis A. Small bowel, biopsy: Small intestinal mucosa with mildly increased intraepithelial lymphocytes and preserved villous architecture. See comment. B. Duodenum, bulb, biopsy: Chronic inactive duodenitis with gastric heterotopia. C. Stomach, antrum, biopsy: Antral-type mucosa with moderate chronic inactive inflammation; no Helicobacter organisms seen. COMMENT: The findings in the small bowel are non-specific and may be sequelae from the peptic injury seen in part B. The differential diagnosis also includes infection (e.g. viral), medication/drugs (e.g. NSAIDs), gluten sensitivity/celiac disease and other immune-mediated processes TODAY'S VISIT: [facility] Medical History Vitamin D deficiency Migraine with aura Thyroid nodule Swollen neck Goiter Surgical History History of esophagogastroduodenoscopy (EGD) Family History Mother Diabetes Thyroid disease Father No problems noted. Other Mental health disorder Social History Housing: House Alcohol intake: never Patient Tobacco Use Status: Never used Tobacco e-Cigarette/Vaping Use: Never Used Second Hand Smoke Exposure: No service: No Current occupational status: employed Sexual orientation: Straight/Heterosexual Gender identity: Female Cognitive needs: No Hearing needs: No Vision needs: No Female Reproductive History Menstrual Age of Menarche: 13 Review of Systems Const Denies weight gain and Denies weight loss ENT Reports no additional complaints, Denies dysphagia and Denies odynophagia Card Reports no additional complaints Resp Reports no additional complaints GI Denies abdominal pain, Denies belching, Denies melena, Denies bloating, Reports constipation, Denies dysphagia, Denies excessive flatus, Denies dyspepsia, Reports heartburn, Denies diarrhea, Denies loose stools, Denies nausea, Denies odynophagia and Denies vomiting Reports no additional complaints Musc Reports no additional complaints Neuro Reports no additional complaints Psych Reports no additional complaints Endo Reports no additional complaints Physical Exam Vital Signs: Last Vital Signs Pulse 76 04/02/23 16:27 BP 127/82 04/02/23 16:27 BMI result Body Mass Index 23.2 Const General: healthy appearing, no acute distress and well developed Nutritional Appearance: well nourished Orientation/consciousness: patient oriented x3 HEENT Head: Yes normal to inspection, Yes normocephalic and Yes atraumatic Face and sinus: Yes normal facial exam Mouth: Normal oral and palatal mucosa present Throat: Yes posterior oropharynx normal, Yes tonsils normal and Yes uvula midline Eyes General: appearance normal, both eyes and all related structures Neck Neck: Yes normal visual inspection, Yes full ROM and Yes trachea midline Thyroid: Thyroid normal Resp Effort & Inspection: normal respiratory effort, able to speak in complete sentences, no tracheal deviation and symmetric chest movement Auscultation: clear to auscultation bilaterally Cardio Rate: regular rate GI Inspection: Yes normal to inspection and No distended Palpation (GI): Soft to palpation, not firm, nontender and No hepatosplenomegaly present Auscultation: normal bowel sounds General: Yes no CVA tenderness Back/Spine/Pelvis Back: no CVA tenderness Skin General skin exam: elasticity normal, turgor normal and dry skin Neuro General: patient oriented x3 Psych Appearance: grossly normal Mental Status: mental status grossly normal Assessment & Plan Assessment & Plan (1) GERD (gastroesophageal reflux disease): Code(s): K21.9 - Gastro-esophageal reflux disease without esophagitis Qualifiers: Esophagitis presence: without esophagitis Qualified Code(s): K21.9 - Gastro-esophageal reflux disease without esophagitis (2) Constipation: Code(s): K59.00 - Constipation, unspecified Qualifiers: Constipation type: slow transit constipation Qualified Code(s): K59.01 - Slow transit constipation (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 Patient reports that she changed her diet and avoiding food that is spicy. Does not eat anything that is fried. Avoiding fast food meals. Upper endoscopy discussed with patient. 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 Patient is not taking any NSAIDs, transglutaminase was negative so we ruled out celiac. Patient will continue taking sucralfate. Chronic gastric inflammation without H pylori seen. Patient will return in 3 months. We will send patient for capsule endoscopy versus barium contrast study. Patient might need to go for surgical procedure. Patient will start taking MiraLax to help her move her bowels better. She will call the office if she will have any abdominal pain or discomfort. Medications: New esomeprazole magnesium (Nexium) 40 mg PO DAILY 90 caps 1RF K21.9 - Gastro-esophageal reflux disease without esophagitis Changed From polyethylene glycol 3350 17 grams PO DAILY 510 grams 2RF To polyethylene glycol 3350 (Miralax) 17 grams PO DAILY 510 grams 2RF Refilled sucralfate 1 g PO BEDTIME 30 tabs 1RF R19.7 - Diarrhea, unspecified Discontinued pantoprazole Discontinued Reason: Doctor's Order 40 mg PO DAILY 30 tabs 3RF K29.70 - Gastritis, unspecified, without bleeding Coding Level of Care Code Est Pt Level 4 (72613) Diagnoses Gastroesophageal reflux disease without esophagitis K21.9 Esophagitis presence: without esophagitis Slow transit constipation K59.01 Constipation type: slow transit constipation 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
[2023-04-02 16:27] VITALS: BP 127/82; PULSE 76; BMI 23.2
== END 2023-04-02 16:52 | disposition home or self-care (01) ==
PROVIDERS: PCP Physician Assistant; Visit Provider Nurse Practitioner Family
DX: K21.9 Gastro-esophageal reflux disease without esophagitis (principal); K59.01 Slow transit constipation; Q40.2 Other specified congenital malformations of stomach
CPT/HCPCS: 99214

== ENCOUNTER → 2023-04-02 16:21 | Outpatient (BNVA) | payer OTHER, SELFPAY | PROVIDERS: PCP Physician Assistant; Visit Provider Nurse Practitioner Family ==

== ENCOUNTER 2023-04-10 15:56 | Outpatient (AMB) | payer OTHER, SELFPAY ==
[2023-04-10 15:58] VITALS: BP 114/72; PULSE 64; RESP 17; BMI 23.2
--- NOTE | 2023-04-10 15:58 | A.OFFPC_ITS ---
Vital Signs 04/10/23 15:58 Height 4 ft 11 in Weight 115 lb BMI 23.2 BP 114/72 Blood Pressure Location Lt brachial Position Sitting Respiration 17 Pulse 64 Pulse Source Palpation Intake Visit Reasons: Annual Exam Intake Note: Patient is here today for a physical. Adjuster Electrical Contacts Required: No Accompanied by: Self / Same As Patient Allergies sertraline Adverse Reaction (Intermediate, Verified 04/10/23 16:34) Fatigued seasonal allergies Allergy (Intermediate, Uncoded 04/10/23 15:59) Itching Medication List - Last Reconciled 04/10/23 by Orville Andrews PA-C cholecalciferol (vitamin D3) 50 mcg PO DAILY esomeprazole magnesium (Nexium) 40 mg PO DAILY hydroxyzine HCl 10 mg PO BEDTIME 30 days polyethylene glycol 3350 (Miralax) 17 grams PO DAILY sucralfate 1 g PO BEDTIME Tobacco use date assessed: 07/19/22 Dental Screening Dental Screen Date: 04/10/23 Did you have a dental visit in the last 12 months?: Yes Did you have a dental problem in the last 6 months where you did not have access to dental care?: No Was dental information given to patient?: Patient has dentist HPI Annual Exam HPI Details Patient is a 27-year-old female here today for a routine annual physical. Patient has a past medical history significant for GERD, anxiety. concerns--> reports a growth over the right upper aspect of her forehead that had been evident 5 years ago that was taken off by watch assembly inspector. She reports the growth has grown back and a bit larger. Would like to monitor at this time. GERD: Patient followed by gastroenterology and continues on Nexium for her GERD symptoms. 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 Other Mental health disorder Social History Housing: House Alcohol intake: never Patient Tobacco Use Status: Never used Tobacco e-Cigarette/Vaping Use: Never Used Second Hand Smoke Exposure: No service: No Current occupational status: employed Sexual orientation: Straight/Heterosexual Gender identity: Female Cognitive needs: No Hearing needs: No Vision needs: No Female Reproductive History Menstrual Age of Menarche: 13 Questionnaire PHQ-9 Over the last 2 weeks, how often have you been bothered by any of the following problems? 1. Little interest or pleasure in doing things: not at all 2. Feeling down, depressed, or hopeless: not at all 3. Trouble falling or staying asleep, or sleeping too much: not at all 4. Feeling tired or having little energy: not at all 5. Poor appetite or overeating: not at all 6. Feeling bad about yourself - or that you are a failure or have let yourself or your family down: not at all 7. Trouble concentrating on things, such as reading the newspaper or watching television: not at all 8. Moving or speaking so slowly that other people could have noticed. Or the opposite - being so fidgety or restless that you have been moving around a lot more than usual: not at all 9. Thoughts that you would be better off or of hurting yourself in some way: not at all Total score: 0 Depression Screening Interpretation: Negative Depression Screening Done: Yes 05669 - PHQ-9 Billing: Yes Source: Developed by Drs. Marecllus Santana, Jose Alberto Marino and colleagues, with an educational lam from [employer]. Thrive Questionnaire Date Thrive assessed: 07/19/22 AUDIT C Alcohol Use Questionnaire (AUDIT-C) 1. How often do you have a drink containing alcohol?: Never 3. How often do you have six or more drinks on one occasion?: Never Total Score: 0 JEANNA-7 AMB Questionnaire JEANNA-7 Date JEANNA - 7 assessed: 07/19/22 Source: Developed by Drs. Marcellus Santana, Jose Alberto Marino and colleagues, with an educational lam from [employer]. Review of Systems Const Denies body aches, Denies chills, Denies excessive sweating, Denies fatigue, Denies fever(s) and Denies headache(s) Eyes Denies blurry vision ENT Denies dysphagia, Denies vertigo, Denies dizziness, Denies headache(s), Denies hearing loss and Denies tinnitus Card Denies chest pain, Denies chest pain with activity, Denies syncope, Denies irregular heart rhythm and Denies dyspnea Resp Denies chest congestion, Denies cough, Denies hemoptysis, Denies dyspnea and Denies wheezing GI Denies abdominal pain, Denies melena, Denies hematochezia, Denies coffee ground emesis, Denies dysphagia, Denies diarrhea, Denies nausea and Denies vomiting Denies urinary frequency, Denies dysuria, Denies urinary hesitancy and Denies urinary urgency Musc Denies arthralgias, Denies limited range of motion, Denies muscle cramps and Denies muscle weakness Skin/Breast Denies rash and Denies skin ulcer Neuro Denies Abnormal speech present, Denies confusion, Denies vertigo, Denies dizziness, Denies syncope, Denies headache(s), Denies memory loss and Denies seizure-like activity Psych Denies anxiety, Denies confusion, Denies depression, Denies memory loss, Denies panic attacks and Denies paranoia Endo Denies excessive sweating, Denies fatigue, Denies flushing, Denies polydipsia and Denies polyuria Aller/Immun Denies wheezing Physical exam (Primary Care) Vital Signs: Last Vital Signs Pulse 64 04/10/23 15:58 Resp 17 04/10/23 15:58 BP 114/72 04/10/23 15:58 BMI result Body Mass Index 23.2 Tobacco/Smoking Status: Tobacco use Status Tobacco use date assessed 07/19/22 04/10/23 15:59 Patient Tobacco Use Status Never used Tobacco 04/10/23 15:59 e-Cigarette/Vaping Use Never Used 04/10/23 16:01 PHQ-9: PHQ-9 Score PHQ-9: Total score 0 04/10/23 16:39 Depression Screening Interpretation: Negative Thrive Assessment: Date of Thrive Assessment Date Thrive assessed 07/19/22 04/10/23 15:59 Const General: cooperative, comfortable, no acute distress, alert and awake; No confusion Orientation/consciousness: oriented to person, oriented to place, patient oriented x3 and No confusion HENMT Head: Yes normocephalic Ears: external ears normal and TM's normal bilaterally Face and sinus: No sinus tenderness Mouth: Normal oral and palatal mucosa present and tongue normal Teeth and gingiva: dentition normal and gingiva normal Throat: Yes posterior oropharynx normal, Yes tonsils normal and Yes uvula midline Eyes Conjunctivae: conjunctivae normal Sclerae: sclerae normal Pupils: Equal, round and reactive pupils present EOM: EOMs intact bilaterally Direct Ophthalmoscopy: No no photophobia Neck Neck: Yes no lymphadenopathy, No tender and Yes no JVD Thyroid: Thyroid normal Carotids: no bruits Chest Chest palpation & inspection: no tenderness Resp Effort & Inspection: normal respiratory effort, no audible wheezes, not labored and no stridor Auscultation: no crackles, no rales, no rhonchi and no wheezes Cardio Jugular venous distension: no JVD Rate: regular rate, not bradycardic and not tachycardic Rhythm: regular rhythm Bruits: no carotid bruits Peripheral pulses: Peripheral pulses 2+ throughout GI Inspection: Yes normal to inspection, No abdominal wall ecchymosis and No visible herniation Palpation (GI): Soft to palpation, nontender, no guarding, not rigid and No hepatosplenomegaly present Auscultation: normoactive bowel sounds General: Yes no CVA tenderness Back/Spine/Pelvis Back: no CVA tenderness and No back tenderness Cervical Spine: cervical ROM normal Thoracic/Lumbar Spine: thoracic and lumbar spine normal to inspection, straight leg raise negative bilaterally, No thoraco-lumbar ROM limited and No lumbar spinal tenderness Skin Lesions: no lesions Rashes: no rashes Wounds: no wounds Neuro General: oriented to person, oriented to place, patient oriented x3, CN's II-XI intact bilaterally and No confusion Cranial nerves: Yes Equal, round and reactive pupils present and Yes Normal accommodation reflex present Cognition (Neuro): normal cognition Speech: No Abnormal speech present Gait exam (Neuro): Normal gait present Motor exam (neuro): 5/5 motor strength present throughout Extrem Right upper extremity: full ROM; no cyanosis Left upper extremity: full ROM; no cyanosis Right lower extremity: no edema Left lower extremity: no edema Psych Appearance: grossly normal Mental Status: mental status grossly normal Affect: normal affect Attitude: cooperative Thought process: Normal thought process present Assessment and Plan Assessment & Plan (1) Annual physical exam: Code(s): Z00.00 - Encounter for general adult medical examination without abnormal findings (2) GERD (gastroesophageal reflux disease): Code(s): K21.9 - Gastro-esophageal reflux disease without esophagitis Qualifiers: Esophagitis presence: without esophagitis Qualified Code(s): K21.9 - Gastro-esophageal reflux disease without esophagitis Plan: Now followed by gastroenterology. Continues with the use of Nexium with good effect on reducing her GERD symptoms. (3) Anxiety: Code(s): F41.9 - Anxiety disorder, unspecified Plan: She does use hydroxyzine 10 mg at night with good effect on her sleep (4) Benign skin lesion of forehead: Code(s): L98.9 - Disorder of the skin and subcutaneous tissue, unspecified Plan: Noted enlarging skin lesion over right upper forehead. Has had similar lesion in the area removed many years ago.. Would like to monitor for now. Will call if she would like dermatology referral for removal. Orders: Orders Vitamin D 25-OH Total Today E55.9 - Vitamin D deficiency, unspecified TSH reflex Free T4 Today E04.1 - Nontoxic single thyroid nodule Complete Blood Count no Diff Today K29.70 - Gastritis, unspecified, without bleeding [place]. Panel Fast Today Z13.1 - Encounter for screening for diabetes mellitus Medications: Refilled cholecalciferol (vitamin D3) 50 mcg PO DAILY 30 caps 3RF hydroxyzine HCl 10 mg PO BEDTIME 30 days 30 tabs 3RF F41.9 - Anxiety disorder, unspecified Coding Level of Care Code Est Pt Prev Care 18-39y(72593) Diagnoses Annual physical exam Z00.00 Gastroesophageal reflux disease without esophagitis K21.9 Esophagitis presence: without esophagitis Anxiety F41.9 Benign skin lesion of forehead L98.9
== END 2023-04-10 16:48 | disposition home or self-care (01) ==
PROVIDERS: Visit Provider Physician Assistant
DX: Z00.00 Encounter for general adult medical examination without abnormal findings (principal); K21.9 Gastro-esophageal reflux disease without esophagitis; F41.9 Anxiety disorder, unspecified; L98.9 Disorder of the skin and subcutaneous tissue, unspecified
CPT/HCPCS: 99395

== ENCOUNTER 2023-07-03 16:17 | Outpatient (REF) | payer OTHER, SELFPAY ==
--- NOTE | ~2023-07-03 | US_ITS ---
EXAMINATION: US THYROID CLINICAL INFORMATION: Nontoxic single thyroid nodule. COMPARISON: Thyroid ultrasound 06/22/2022 and 07/06/2021. Ultrasound-guided thyroid biopsy 09/09/2020. TECHNIQUE: Linear transducer grayscale and color Doppler examination with attention to the region of the thyroid. FINDINGS: SIZE: Measurements of the thyroid lobes and nodules are given in sagittal, anteroposterior and transverse dimensions respectively. Right Thyroid Lobe: 5.3 x 2.2 x 2.4 cm, volume 15.2 mL. Previously 4.7 x 2.1 x 2.1 cm, volume 10.7 mL. Parenchyma: The gland echotexture is heterogeneous. Thyroid vascularity is increased. Left Thyroid Lobe: 3.6 x 0.9 x 0.9 cm, volume 1.4 mL. Previously 0.6 x 0.9 x 0.9 cm, volume 1.5 mL. Parenchyma: The gland echotexture is homogeneous. Thyroid vascularity is normal. Isthmus: 0.08 cm in maximum AP dimension. Previously 0.2 cm. Estimated total number of nodules greater than or equal to 1 cm: 1. Hospice Home Health Aide nodules are described as follows: 1. Location: Right mid pole. Size: 3.6 x 1.9 x 2.4 cm, volume 8.6 mL. Previously: 3.2 x 2.3 x 1.8 cm, volume 6.8 mL. Nodule characteristics: Composition: Solid/almost completely solid (2). Echogenicity: Isoechoic (1). Shape: Not taller than wide (0). Margins: Smooth (0). Echogenic Foci: None (0). ACR TI-RADS total points: 3 ACR TI-RADS category: 3 Significant change in size (>/= 20% in 2 dimensions and minimal increase of 2 mm or 50% or greater increase in volume): No Change in features: Not with accounting for differences in interobserver variability, as imaging findings appear similar to prior. NODES: No lymphadenopathy is seen in the tissue surrounding the thyroid gland. US/US thyroid IMPRESSION: A 3.6 cm TR 3 right midpole thyroid nodule not increased in size from prior which was previously sampled in 2020, recommend correlation with prior pathology. ACR TI-RADS RECOMMENDATION REFERENCE: Ultrasound-guided fine-needle aspiration, follow up ultrasound, no further followup. * TR1 (0 point) and TR2 (2 points): No FNA or followup * TR3 (3 points): FNA if more than or equal to 2.5 cm in maximum dimension, follow up ultrasound in 1, 3 and 5 years if 1.5 to 2.4 cm in maximum dimension. * TR4 (4-6 points): FNA if more than or equal to 1.5 cm in maximum dimension, follow up ultrasound in 1, 2, 3 and 5 years if 1 to 1.4 cm in maximum dimension. * TR5 (more than or equal to 7 points): FNA if more than or equal to 1 cm in maximum dimension, follow up ultrasound every year for 5 years if 0.5 to 0.9 cm in maximum dimension. * TR3, TR4 or TR5 nodules that are below the size threshold for follow up receive no followup.
[2023-07-03 18:53] LABS: Free T4 (Free Thyroxine) 0.81 ng/dL (0.71-1.85); Thyroid Stimulating Hormone 2.84 uIU/mL (0.32-4.0)
== END 2023-07-03 16:18 | disposition home or self-care (01) ==
LOC: HO.US 16:17
PROVIDERS: PCP Physician Assistant; Visit Provider Internal Medicine Endocrinology, Diabetes & Metabolism
DX: E04.1 Nontoxic single thyroid nodule (principal)
CPT/HCPCS: 36415; 76536; 84439; 84443

== ENCOUNTER 2023-08-21 07:57 | Outpatient (AMB) | payer OTHER, SELFPAY ==
[2023-08-21 07:59] VITALS: BP 102/68; PULSE 72; BMI 23.2
--- NOTE | 2023-08-21 07:59 | A.OFFVIS_ITS ---
Vital Signs 08/21/23 07:59 Height 4 ft 11 in Weight 115 lb BMI 23.2 BP 102/68 Blood Pressure Location Lt brachial Position Sitting Pulse 72 Pulse Source Pulse Oximeter Intake Visit Reasons: F/U NTMNG Intake Note: Patient presents today for NTMNG follow up, last seen by Dr. Ragland on 05/18/2022. Pulling Unit Floorhand Required: No Accompanied by: Self / Same As Patient Allergies sertraline Adverse Reaction (Intermediate, Verified 08/21/23 08:06) Fatigued seasonal allergies Allergy (Intermediate, Uncoded 08/21/23 08:06) Itching Medication List - Last Reconciled 08/21/23 by Marcellus Jones MD cholecalciferol (vitamin D3) 50 mcg PO DAILY esomeprazole magnesium (Nexium) 40 mg PO DAILY hydroxyzine HCl 10 mg PO BEDTIME 30 days polyethylene glycol 3350 (Miralax) 17 grams PO DAILY sucralfate 1 g PO BEDTIME HPI Comments Details: 28 YO Female with a PMHx of a thyroid nodule who is seen in F/U for the same. She was previously followed by Dr. Mckenna. The patient last saw Dr. Ragland on 05/18/2022 She has a 3.1 cm RMP thyroid nodule and underwent FNA biopsy of this 09/09/2020. Cytology was benign (bethesda category II). She had a repeat US 07/06/2021 which was largely unchanged. Today she complains of occasional dysphagia, occasional sensation of pressure in the neck particularly while lying flat. She also complains of mood swings. She denies any vocal hoarseness. She denies any symptoms of hyper or hypothyroidism. She denies any personal history of radiation to the head or the neck. She denies any family history of thyroid cancer. Thyroid US: 07/06/2021 Right Thyroid Lobe: 4.7 x 1.8 x 2.6 cm, volume 11.2 mL. Parenchyma: The gland echotexture is homogeneous. Thyroid vascularity is normal. Left Thyroid Lobe: 4.1 x 0.7 x 1.1 cm, volume 1.5 mL. Parenchyma: The gland echotexture is homogeneous. Thyroid vascularity is normal. Isthmus: 0.2 cm in maximum AP dimension. Estimated total number of nodules greater than or equal to 1 cm: 1. Head Of Talent Management nodules are described as follows: 1. Location: Right mid pole. ?? ? Size: 2.9 x 1.3 x 2.2 cm, volume 4.2 mL. ?? ? Previous: 3.1 x 1.5 x 1.9 cm, volume 4.6 mL. ?? ? Nodule characteristics: ?? ? Composition: Solid/almost completely solid (2). ?? ? Echogenicity: Hypoechoic (2). ?? ? Shape: Not taller than wide (0). ?? ? Margins: Smooth (0). ?? ? Echogenic Foci: None (0). ?? ? ACR TI-RADS total points: 4 ?? ? ACR TI-RADS category: 4 NODES: No lymphadenopathy is seen in the tissue surrounding the thyroid gland. Labs: Laboratory Tests 06/13/21 Unknown TSH 2.78 PFSH Medical History Vitamin D deficiency Migraine with aura Thyroid nodule Swollen neck Goiter Surgical History History of esophagogastroduodenoscopy (EGD) Family History Mother Diabetes Thyroid disease Father No problems noted. Other Mental health disorder Social History Housing: House Alcohol intake: never Patient Tobacco Use Status: Never used Tobacco e-Cigarette/Vaping Use: Never Used Second Hand Smoke Exposure: No service: No Current occupational status: employed Sexual orientation: Straight/Heterosexual Gender identity: Female Cognitive needs: No Hearing needs: No Vision needs: No Female Reproductive History Menstrual Age of Menarche: 13 Physical Exam Const Other: Thyroid gland is normal size weighs about 15 g. There there is a 3 cm nodule present in the right middle pole Assessment & Plan Assessment & Plan (1) Goiter: Code(s): E04.9 - Nontoxic goiter, unspecified Category: Medical Plan: This is a 28-year-old female with a history of multinodular goiter with dominant right mid pole nodule status post FNA with benign cytology. Recent ultrasound shows stability in the size of the nodule.. She appears to be clinically biochemically euthyroid After careful discussion with the patient regarding different options including observation vs surgical resection, , the patient is opting for surgical resection and we referred to Dr. Webber Orders: Referrals General Surgery Referral E04.9 - Nontoxic goiter, unspecified Coding Level of Care Code Est Pt Level 3 (66659) Diagnoses Goiter E04.9
== END 2023-08-21 08:19 | disposition home or self-care (01) ==
PROVIDERS: PCP Physician Assistant; Visit Provider Internal Medicine Endocrinology, Diabetes & Metabolism
DX: E04.9 Nontoxic goiter, unspecified (principal)
CPT/HCPCS: 99213

== ENCOUNTER → 2023-08-21 07:57 | Outpatient (BNVA) | payer OTHER, SELFPAY | PROVIDERS: PCP Physician Assistant; Visit Provider Internal Medicine Endocrinology, Diabetes & Metabolism ==

== ENCOUNTER 2023-11-13 09:43 | Outpatient (REF) | payer OTHER, SELFPAY | END 2023-11-13 09:44 | disposition home or self-care (01) | LOC: HO.LAB 09:43 | PROVIDERS: PCP Physician Assistant; Visit Provider Advanced Practice Midwife | DX: Z13.89 Encounter for screening for other disorder (principal) ==

== ENCOUNTER 2023-11-13 09:43 | Outpatient (AMB) | payer OTHER, SELFPAY ==
--- OUTSIDE RECORDS SUMMARY | 2023-11-13 09:45 | XMS_ITS | Continuity of Care Document ---
Author Organization [facility] William juanita Address [address] [place] [address] D[address] [place] [address]- Care Team Providers Care Top Frame Maker Name Role Phone Orville Negrete Primary Care Physician [phone] Encounter [facility] Date(s): 05/16/22 - 06/15/22 [facility] [address] [place] [address] Drive [address] [place], [place] [address] Allergies, Adverse Reactions, Alerts No Known Allergies Medications amitriptyline 10 mg oral tablet 1 tablet = 10 mg, By Mouth, Daily at bedtime, # 30 tablet, 6 Refills, Maintenance, 07/21/13 16:23:04, 1 tablet By Mouth Daily at bedtime,x30 days Start Date: 07/21/13 Stop Date: 02/16/14 Status: Ordered Bentyl 10 mg oral capsule 1 capsule = 10 mg, By Mouth, 3 times a day, # 90 capsule, 5 Refills, Maintenance, 06/03/13 15:25:07, Capsule, 1 capsule By Mouth 3 times a day,x30 days Start Date: 06/03/13 Stop Date: 11/30/13 Status: Ordered Ferrous Sulfate By Mouth, 0 Refills, Maintenance Start Date: 09/09/12 Status: Ordered ibuprofen 200 mg oral tablet 2 tablet = 400 mg, By Mouth, Every 6 hours, PRN Pain, # 120 tablet, 0 Refills, Maintenance, Tablet Start Date: 01/05/10 Status: Ordered Maalox Advanced oral tablet, chewable See Instructions, PRN as needed for indigestion, 1 tablet after meals or at bedtime, or as needed (not to exceed 8 tablets/day), # 14 tablet, 0 Refills, Maintenance Start Date: 08/20/12 Status: Ordered omeprazole 40 mg oral enteric coated capsule 1 capsule = 40 mg, By Mouth, Daily, # 30 capsule, 5 Refills, Maintenance, EC Capsule Start Date: 09/09/12 Stop Date: 03/08/13 Status: Ordered pantoprazole 40 mg oral delayed release tablet 1 tablet = 40 mg, By Mouth, Daily, # 30 tablet, 0 Refills, Maintenance, 05/16/22 13:20:00 EST, EC Tablet Start Date: 05/16/22 Status: Ordered raNITIdine 150 mg oral capsule 1 capsule = 150 mg, By Mouth, 2 times a day, # 28 capsule, 0 Refills, Maintenance, 03/03/18 9:40:38EST, Capsule Start Date: 03/03/18 Stop Date: 03/17/18 Status: Ordered ranitidine 150 mg oral tablet 1 tablet = 150 mg, By Mouth, 2 times a day, # 60 tablet, 0 Refills, Maintenance, Tablet Start Date: 08/20/12 Status: Ordered Zofran ODT 4 mg oral tablet, disintegrating 1 tablet = 4 mg, By Mouth, 3 times a day, # 90 tablet, 0 Refills, Maintenance, 07/15/17 12:28:05 EDT Start Date: 07/15/17 Status: Ordered Problem List Condition Confirmation Course Effective Dates Status Health St atus Informant Breast lump Confirmed Active Left sided abdominal pain Confirmed Active Pain of breast Confirmed Active Social History Social History Type Response Smoking Status Never (less than 100 in lifetime) entered on: 03/03/18 Sex Patient Care team information Care Team Personnel Name: Orville Negrete Position: Reference Physician Member Role: PCP Address: Address: [address] [place] [address]- Care Team Related Persons Name: GERALDO OROZCO Address: [address] [place] [address] Name: AGGIE GONCALVES Address: [place] [address]
--- OUTSIDE RECORDS SUMMARY | 2023-11-13 09:45 | XMS_ITS | Continuity of Care Document ---
Author Organization [facility] Address [address] [place] [address] ve [address] [place] [address]- Care Team Providers Care Editor Producer Name Role Phone Orville Negrete Primary Care Physician Encounter [facility] [place] Date(s): 05/16/22 - 06/15/22 [facility] [address] [place] [address]- Attending Physician: Fernie [place] Admitting Physician: Fernie [place] Referring Physician: AdmtrFernie Allergies, Adverse Reactions, Alerts No Known Allergies [...] Physician Member Role: PCP Address: Address: [address] [place] [address]- Care Team Related Persons Name: GERALDO OROZCO Address: home [address] [place] [address] Name: AGGIE GONCALVES Address: [place] [address]
--- OUTSIDE RECORDS SUMMARY | 2023-11-13 09:45 | XMS_ITS | Continuity of Care Document ---
Author Organization [facility] William juanita Address [address] [place] [address] [address] [place] [address]- Care Team Providers Care Leak Inspector Name Role Phone Orville Negrete Primary Care Physician [phone] Encounter [facility] [place] Date(s): 02/28/22 - 03/30/22 [facility] [address] [place], [place] [address] Allergies, Adverse Reactions, Alerts No [...] Date: 09/09/12 Stop Date: 03/08/13 Status: Ordered raNITIdine 150 mg oral capsule [...] Physician Member Role: PCP Address: Address: [address] [place] [address]- Care Team Related Persons Name: GERALDO OROZCO Address: home [address] [place] [address] Name: AGGIE GONCALVES Address: [place] [address]
--- OUTSIDE RECORDS SUMMARY | 2023-11-13 09:45 | XMS_ITS | Continuity of Care Document ---
Author Organization [facility] William juanita Address [address] [place] [address] Dr [address] [place] [address]- Care Team Providers Care Invoice Machine Operator Name Role Phone Orville Negrete Primary Care Physician Encounter [facility] [place] Date(s): 06/09/21 - 12/01/21 [facility] [address] [place] [address] Drive [address] [place], [place] [address] Attending Physician: Tylor DOMINGO MD, Skip Reyes Referring Physician: Orville Negrete Allergies, Adverse Reactions, Alerts No Known Allergies [...] Date: 07/15/17 Status: Ordered Problem List Condition Effective Dates Status Health Status Inform ant Breast lump(Confirmed) Active Left sided abdominal pain(Confirmed) Active Pain of breast(Confirmed) Active Social History Social History Type Response Smoking Status Never (less than 100 in lifetime) entered on: 03/03/18 Sex
--- OUTSIDE RECORDS SUMMARY | 2023-11-13 09:45 | XMS_ITS | Continuity of Care Document ---
Author Organization [facility] William juanita Address [address] [place] [address] [address] [place] [address]- Care Team Providers Care Precision Millwright Name Role Phone Orville Negrete Primary Care Physician [phone] Encounter [facility] [place] Date(s): 06/26/22 - 07/03/22 [facility] [address] [place], [place] [address] Attending Physician: Ceferino Rasheed MD Allergies, Adverse Reactions, Alerts No Known Allergies [...] Confirmed Active Pain of breast Confirmed Active Vital Signs Most recent to oldest [Reference Range]: 1 Height 150 cm (06/26/22 9:30 AM) Weight 53.6 kg (06/26/22 9:30 AM) Body Mass Index [18.5-24.99 kg/m2] 23.82 kg/m2 (06/26/22 9:30 AM) Weight Obtained Via Standing scale (06/26/22 9:30 AM) Social History Social History Type Response Smoking Status Never (less than 100 in lifetime) entered on: 03/03/18 Sex Patient Care team information Care Team Personnel Name: Orville Negrete Position: Reference Physician Member Role: PCP Address: Address: [address] [place] [address]- Care Team Related Persons Name: GERALDO OROZCO Address: home [address] [place] [address] Name: AGGIE GONCALVES Address: [place] [address]
--- OUTSIDE RECORDS SUMMARY | 2023-11-13 09:45 | XMS_ITS | Continuity of Care Document ---
Author Organization [facility] Address [address] [place] [address]- Care Team Providers Care Accountant Helper Name Role Phone Orville Negrete Primary Care Physician Encounter [facility] [place] Date(s): 05/29/20 - 05/30/[address] [address]- Encounter Diagnosis Thyroid nodule(Final) - 05/30/20 Discharge Disposition: A-D/C Home Attending Physician: Skip Rivrea MD Admitting Physician: Skip Rivera MD Referring Physician: Not on Staff, Referring MD Allergies, Adverse Reactions, Alerts Substance Reaction Severity Status NKA Active Medications amitriptyline 10 mg oral tablet 1 [...] abdominal pain(Confirmed) Active Pain of breast(Confirmed) Active Results Radiology Reports * Exam Date Time Procedure Performing Provider Status 05/29/20 11:39 PM Chest 2 Views Frontal and Lat Kobe Berry; Anu (Verified) Notes: (Chest 2 Views Frontal and Lat) Reason For Exam: Shortness of Breath, Fever;Other: RESULT: Chest 2 Views Frontal and Lat Chest 2 Views Frontal and Lat Hx of Present Illness: pt c o mass in R anterior neck x several days with new onset chest pressure x2 days. per pt PMD aware of new mass, workup in process but chest pressure is new. pt denies any other complaint.; Reason: Other:; Shortness of Breath, Fever; Clinical Question(s): Pneumonia COMPARISON: 06/30/2013 FINDINGS: LINES AND TUBES: None. LUNGS AND PLEURA: No pneumothorax. No pleural effusion. The lungs are clear. Pulmonary vascularity is normal. HEART, MEDIASTINUM AND SHANNEN: Heart is normal in size. Normal mediastinal silhouette. BONES AND SOFT TISSUES: No acute bony abnormalities. IMPRESSION: No acute abnormality. WSN: [id number] Ordering Physician: Lamont Dyer Dictated By: Salvatore Villalpando MD Dictated Date/Time: 05/29/20 11:45 p Reviewed By: Salvatore Villalpando MD Signed By: Salvatore Villalpando MD Signed Date/Time: 05/29/20 11:45 pm Transcribed By: ALENA Transcribed Date/Time: 05/29/20 11:43 pm Vital Signs Most recent to oldest [Reference Range]: 1 2 3 Oxygen Saturation [94-100 %] 100 % (05/30/20 1:10 AM) 100 % (05/29/20 10:34 PM) 100 % (05/29/20 9:38 PM) Pulse Rate [55-90 bpm] 82 bpm (05/30/20 1:10 AM) 108 bpm *H* (05/29/20 10:34 PM) 104 bpm *H* (05/29/20 9:38 PM) Blood Pressure [90-138/55-84 mm Hg] 118/82mm Hg (05/30/20 1:10 AM) 125/84mm Hg (05/29/20 10:34 PM) 121/85mm Hg (05/29/20 9:47 PM) Respiratory Rate [16-30 br/min] 17 br/min (05/30/20 1:10 AM) 23 br/min (05/29/20 10:34 PM) 20 br/min (05/29/20 9:38 PM) Temperature [96.8-100.4 DegF] 97.7 DegF (05/30/20 1:10 AM) 98.3 DegF (05/29/20 10:34 PM) 98.1 DegF (05/29/20 9:47 PM) Mode of Delivery (Oxygen) Room air (05/30/20 1:10 AM) Room air (05/29/20 10:34 PM) Room air (05/29/20 9:38 PM) Blood pressure sites Arm, left (05/30/20 1:10 AM) Arm, left (05/29/20 10:34 PM) Arm, right (05/29/20 9:47 PM) Temperature Route Oral (05/30/20 1:10 AM) Oral (05/29/20 10:34 PM) Oral (05/29/20 9:47 PM) Social History Social History Type Response Smoking Status Never (less than 100 in lifetime) entered on: 03/03/18 Sex
--- OUTSIDE RECORDS SUMMARY | 2023-11-13 09:45 | XMS_ITS | Continuity of Care Document ---
Author Organization [facility] William juanita Address [address] [place] [address] [address] [place] [address]- Care Team Providers Care Care Transitions Nurse Name Role Phone Orville Negrete Primary Care Physician Encounter [facility] Date(s): 07/07/22 - 08/06/22 [facility] [address] [place], [place] [address] Attending Physician: Fernie Frederick Admitting Physician: AdmtrFernie Referring Physician: Admtr ArKaci Allergies, Adverse Reactions, Alerts No Known Allergies [...] Physician Member Role: PCP Address: Address: [address] [place] [address]- Care Team Related Persons Name: GERALDO OROZCO Address: home [address] [place] [address] Name: AGGIE GONCALVES Address: [place] [address]
--- OUTSIDE RECORDS SUMMARY | 2023-11-13 09:45 | XMS_ITS | Continuity of Care Document ---
Author Organization [facility] William juanita Address [address] [place] [address] [address] [place] [address]- Care Team Providers Care Jr. Systems Administrator Name Role Phone Orville Negrete Primary Care Physician [phone] Encounter [facility] [place] Date(s): 06/26/22 - 07/26/22 [facility] [address] [place], [place] [address] Attending Physician: Fernie Frederick Admitting Physician: AdmFernie [place] Referring Physician: AdmtrFernie Allergies, Adverse Reactions, Alerts [...] Address: Address: [address] [place] [address]- Care Team Related Persons Name: GERALDO OROZCO Address: home [address] [place] [address] Name: AGGIE GONCALVES Address: [place] [address]
--- OUTSIDE RECORDS SUMMARY | 2023-11-13 09:45 | XMS_ITS | Continuity of Care Document ---
Author Organization [facility] William juanita Address [address] [place] [address] [address] [place] [address]- Care Team Providers Care Actuarial Mathematician Name Role Phone Orville Negrete Primary Care Physician Encounter [facility] [place] Date(s): 02/20/22 - 03/22/22 [facility] [address] [place], [place] [address] Attending Physician: Fernie Frederick Admitting Physician: AdmFernie [...] Member Role: PCP Address: Address: [address] [place] [address]- Care Team Related Persons Name: GERALDO OROZCO Address: home [address] [place] [address] Name: AGGIE GONCALVES Address: [place] [address]
--- OUTSIDE RECORDS SUMMARY | 2023-11-13 09:45 | XMS_ITS | Continuity of Care Document ---
Author Organization [facility] William juanita Address [address] [place] [address] [address] [place] [address]- Care Team Providers Care Mail Clerks Supervisor Name Role Phone Orville Negrete Primary Care Physician [phone] Encounter [facility] [place] Date(s): 02/20/22 - 02/27/22 [facility] [address] [place] [address] Drive [address] [place], [place] [address] Attending Physician: Ceferino Rasheed MD Referring Physician: Orville Negrete Allergies, Adverse Reactions, [...] oldest [Reference Range]: 1 Height 150 cm (02/20/22 3:10 PM) Weight 53.3 kg (02/20/22 3:10 PM) Pulse Rate [55-90 bpm] 80 bpm (02/20/22 3:10 PM) Body Mass Index [18.5-24.99 kg/m2] 23.69 kg/m2 (02/20/22 3:10 PM) Blood Pressure [90-138/55-84 mm Hg] 128/ 79mm Hg (02/20/22 3:10 PM) Blood pressure sites Arm, left (02/20/22 3:10 PM) Weight Obtained Via Bed scale (02/20/22 3:10 PM) Social History Social History Type Response Smoking Status Never (less than 100 in lifetime) entered on: 03/03/18 Sex Patient Care team information Care Team Personnel Name: Orville Negrete Position: Reference Physician Member Role: PCP Address: Address: [address] [place] [address]- Care Team Related Persons Name: GERALDO OROZCO Address: home [address] [place] [address] Name: IVANNA, AGGIE Address: home [place] [address]
--- OUTSIDE RECORDS SUMMARY | 2023-11-13 09:45 | XMS_ITS | Continuity of Care Document ---
Author Organization [facility] Address [address] [place] [address] [address] [place] [address]- Care Team Providers Care Research Environmental Engineer Name Role Phone Orville Negrete Primary Care Physician Encounter [facility] [place] [place] Date(s): 05/16/22 - 05/23/22 [facility] [address] [place], [place] [email or web address] Attending Physician: Yuliya Frias MD Referring Physician: Ceferino Rasheed MD Allergies, Adverse Reactions, [...] oldest [Reference Range]: 1 Height 150 cm (05/16/22 1:18 PM) Weight 53.6 kg (05/16/22 1:18 PM) Pulse Rate [55-90 bpm] 78 bpm (05/16/22 1:18 PM) Body Mass Index [18.5-24.99 kg/m2] 23.82 kg/m2 (05/16/22 1:18 PM) Blood Pressure [90-138/55-84 mm Hg] 114/ 77mm Hg (05/16/22 1:18 PM) Blood pressure sites Arm, right (05/16/22 1:18 PM) Weight Obtained Via Bed scale (05/16/22 1:18 PM) Social History Social History Type Response Smoking Status Never (less than 100 in lifetime) entered on: 03/03/18 Sex Patient Care team information Care Team Personnel Name: Orville Negrete Position: Reference Physician Member Role: PCP Address: Address: [address] [place] [address]- Care Team Related Persons Name: GERALDO OROZCO Address: home [address] [place] [address] Name: AGGIE GONCALVES Address: [place] [address]
--- OUTSIDE RECORDS SUMMARY | 2023-11-13 09:45 | XMS_ITS | Continuity of Care Document ---
Author Organization [facility] William juanita Address [address] [place] [address] [address] [place] [address]- Care Team Providers Care Fitting Room Attendant Name Role Phone Orville Negrete Primary Care Physician [place] [facility] [id number] Date(s): 02/28/22 - 08/06/22 [facility] [address] [place], [place] [address] Attending Physician: Ceferino Rasheed MD Allergies, Adverse [...] Physician Member Role: PCP Address: Address: [address] [place] [address]- Care Team Related Persons Name: GERALDO OROZCO Address: home [address] [place] [address] Name: AGGIE GONCALVES Address: [place] [address]
--- OUTSIDE RECORDS SUMMARY | 2023-11-13 09:46 | XMS_ITS | Continuity of Care Document ---
Author Organization [facility] William juanita Address [address] [place] [address] [address] [place] [address]- Care Team Providers Care Diesel Engine Operator Name Role Phone Orville Negrete Primary Care Physician Encounter [facility] Date(s): 11/01/21 - 12/01/21 [facility] [address] [place] [address] [address] [place], [place] [address] Attending Physician: Fernie Frederick Admitting Physician: Admtr, Ar8 Referring Physician: Admtr, Ar8 Allergies, Adverse Reactions, Alerts No Known Allergies [...]
--- NOTE | 2023-11-13 09:49 | MHC.OFFVIS ---
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 Doing well with no concerns: increased discharge, not symptomatic. Activity to her skin when she wears an external sanitary pad she has tried different brands and not really found one that works well. She tries to eat healthy and stays active with exercise. Takes a multivitamin. Regular monthly menses. Currently is sexually active. Not on control in his not interested in using anything. She is okay if she became . She denies vaginal itching and irritation. STI screening offered; she accepts. Denies family history of breast, ovarian or colon cancer. Last pap smear 2019, negative. [facility] Medical History Vitamin D deficiency Migraine with aura Thyroid nodule Swollen neck Goiter Surgical History History of esophagogastroduodenoscopy (EGD) Family History Mother Diabetes Thyroid disease Father No problems noted. Other Mental health disorder Social History Housing: House Alcohol intake: never Patient Tobacco Use Status: Never used Tobacco e-Cigarette/Vaping Use: Never Used Second Hand Smoke Exposure: No service: No Current occupational status: employed Sexual orientation: Straight/Heterosexual Gender identity: Female Cognitive needs: No Hearing needs: No Vision needs: No Female Reproductive History Menstrual Age of Menarche: 13 Duration of menses: 3-5 days Date of last menstrual period: 11/05/23 control method: none Total pregnancies: 2 Full term: 2 Number of Living Children: 2 Date of last pap smear: 02/27/20 (neg) Review of Systems Const All systems reviewed & are unremarkable except as noted in HPI and below Reports as per HPI Eyes Reports no additional complaints ENT Reports no additional complaints Card Reports no additional complaints Resp Reports no additional complaints GI Reports as per HPI and Reports no additional complaints Reports as per HPI Musc Reports no additional complaints Skin/Breast Reports as per HPI Neuro Reports no additional complaints Psych Reports no additional complaints Endo Reports no additional complaints Hugo/Lymph Reports no additional complaints Aller/Immun Reports no additional complaints Physical Exam Vital Signs: Last Vital Signs BP 114/70 11/13/23 09:50 BMI result Body Mass Index 23.0 Const General: cooperative, healthy appearing, no acute distress, well developed and alert Orientation/consciousness: patient oriented x3 HEENT Head: Yes normal to inspection Eyes General: appearance normal, both eyes and all related structures Neck Neck: Yes normal visual inspection Thyroid: Thyroid normal Chest Chest palpation & inspection: normal inspection of the chest and other (no puckering, dimpling, peau de orange, retraction, discharge, masses) Breast/axilla inspection: normal inspection of the breasts Breast/axilla palpation: normal palpation of the breasts Resp Effort & Inspection: normal respiratory effort GI Inspection: Yes normal to inspection Palpation (GI): Soft to palpation Rectal Exam - Female: deferred Other: External erythema in area of wear pad lining General: Yes bladder normal to palpation External Female Exam: normal external appearance and normal appearance of the urethra Speculum Exam - Vagina: normal appearance of the vagina, normal palpation and normal vaginal discharge Speculum Exam - Cervix: normal appearance of the cervix and normal palpation Bimanual exam- vagina & uterus: normal bimanual exam, normal palpation, uterine size normal, bladder normal to palpation, normal palpation and non-tender Bimanual Exam- Adnexa, other: no masses Skin General skin exam: no rashes or lesions noted Rashes: no rashes Neuro General: patient oriented x3 Cognition (Neuro): normal cognition Extrem General: Yes normal to inspection Psych Attitude: cooperative Thought process: Normal thought process present Assessment & Plan Assessment & Plan (1) Well woman exam with routine gynecological exam: Code(s): Z01.419 - Encounter for gynecological examination (general) (routine) without abnormal findings Category: Medical Plan: Discussed: Current recommendations for pap smears per ASCCP guidelines. Breast awareness and periodic breast exams. Maintain a healthy lifestyle including a well balanced diet and routine exercise. Skin care, use of all natural cotton usable pads, or consider a diva or other menstrual cup w/cotton pad. Patient verbalizes understanding and agrees to the plan of care. She was given opportunity to ask questions and all questions were answered to the best of my ability. 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 This note is constructed using voice recognition software. While every effort has been made to ensure accuracy, weaving teacher errors may have been included. Coding Level of Care Code Est Pt Prev Care 18-39y(94846) Diagnoses Well woman exam with routine gynecological exam Z01.419
[2023-11-13 09:50] VITALS: BP 114/70; BMI 23.0
== END 2023-11-13 10:29 | disposition home or self-care (01) ==
LOC: HO.HWS 09:44
PROVIDERS: PCP Physician Assistant; Visit Provider Advanced Practice Midwife
DX: Z01.419 Encounter for gynecological examination (general) (routine) without abnormal findings (principal)
CPT/HCPCS: 99395

== ENCOUNTER 2023-11-13 10:24 | Outpatient (REF) | payer OTHER, SELFPAY ==
[2023-11-14 13:30] LABS: Bacterial Vaginosis PCR NEGATIVE (Negative); Candida Group PCR NOT DETECTED (Not Detect); Candida glab krusei PCR NOT DETECTED (Not Detect); Trichomonas vaginalis PCR NOT DETECTED (Not Detect)
[2023-11-14 13:32] LABS: CT PCR NOT DETECTED (Not Detect.); NG PCR NOT DETECTED (Not Detect.)
== END 2023-11-13 10:25 | disposition home or self-care (01) ==
LOC: HO.LNP 10:24
PROVIDERS: Visit Provider Advanced Practice Midwife
DX: Z01.419 Encounter for gynecological examination (general) (routine) without abnormal findings (principal); N89.8 Other specified noninflammatory disorders of vagina
CPT/HCPCS: 0352U; 87491; 87591; 87625; 88175

== ENCOUNTER 2024-04-01 08:00 | Outpatient (AMB) | payer OTHER, SELFPAY ==
[2024-04-01 08:02] VITALS: BP 114/78; PULSE 78; BMI 22.5
--- NOTE | 2024-04-01 08:02 | MHC.OFFVIS ---
Vital Signs 04/01/24 08:02 Height 4 ft 11 in Weight 111 lb 8.862 oz BMI 22.5 BP 114/78 Blood Pressure Location Lt brachial Position Sitting Pulse 78 Pulse Source Pulse Oximeter Intake Visit Reasons: F/U NTMNG Intake Note: Patient present today for NTMNG follow up visit. Bend Sorter Required: No Accompanied by: Boyfriend Allergies sertraline Adverse Reaction (Intermediate, Verified 04/01/24 08:07) Fatigued seasonal allergies Allergy (Intermediate, Uncoded 04/01/24 08:07) Itching Medication List - Last Reconciled 04/01/24 by Jenniffer Miller MD benzoyl peroxide 5% 1 appl topical Q OTHER DAY PRN 15 days doxycycline monohydrate 100 mg PO BID 7 days esomeprazole magnesium (Nexium) 40 mg PO DAILY sucralfate 1 g PO BEDTIME HPI Comments Details: 28 YO Female with a PMHx of a 3.6 cm symtomatic right sided thyroid nodule with benign fna status post right lobectomy with Dr. Oralia Webber at [facility] on 03/25/2024, coming today for follow up. HPI from prior visit She has a 3.1 cm RMP thyroid nodule and underwent FNA biopsy of this 09/09/2020. Cytology was benign (bethesda category II). She had a repeat US 07/06/2021 which was largely unchanged. She was complaining of occasional dysphagia, occasional sensation of pressure in the neck particularly while lying flat. She also complains of mood swings. She denies any vocal hoarseness. She denies any symptoms of hyper or hypothyroidism. She denies any personal history of radiation to the head or the neck. She denies any family history of thyroid cancer. Mother has hypothyroidism. Interval history Repeat ultrasound in June 2023 showed enlarging size of the nodule up to 3.6 cm. Given she was symptomatic with enlarging size of the nodule, it was decided to refer her to Endocrine surgery. She underwent right thyroid lobectomy with Dr. Oralia Webber at [facility] on 03/25/2024. Pathology is pending. She is doing well postoperatively. Denies any numbness or tingling around her mouth. Taking vitamin D over the counter not sure of the dose Bowel movement regular. Lost 6 lbs in 2 months. Periods are regular. Not planning any . Not on contraceptives. Physical exam General: sitting comfortably in no acute distress HEENT: normocephalic/atraumatic, Neck: supple, symmetrical, well-healing, steri strip on scar Cardiac: normal heart sounds Pulm: normal breath sounds B/L, no added breath sounds Abd: not distended, no tenderness Extremities: no edema, no signs of myxedema Imaging US THYROID 07/14 CLINICAL INFORMATION: Nontoxic single thyroid nodule. COMPARISON: Thyroid ultrasound 06/22/2022 and 07/06/2021. Ultrasound-guided thyroid biopsy 09/09/2020. TECHNIQUE: Linear transducer grayscale and color Doppler examination with attention to the region of the thyroid. FINDINGS: SIZE: Measurements of the thyroid lobes and nodules are given in sagittal, anteroposterior and transverse dimensions respectively. Right Thyroid Lobe: 5.3 x 2.2 x 2.4 cm, volume 15.2 mL. Previously 4.7 x 2.1 x 2.1 cm, volume 10.7 mL. Parenchyma: The gland echotexture is heterogeneous. Thyroid vascularity is increased. Left Thyroid Lobe: 3.6 x 0.9 x 0.9 cm, volume 1.4 mL. Previously 0.6 x 0.9 x 0.9 cm, volume 1.5 mL. Parenchyma: The gland echotexture is homogeneous. Thyroid vascularity is normal. Isthmus: 0.08 cm in maximum AP dimension. Previously 0.2 cm. Estimated total number of nodules greater than or equal to 1 cm: 1. Panelboard Operator nodules are described as follows: 1. Location: Right mid pole. Size: 3.6 x 1.9 x 2.4 cm, volume 8.6 mL. Previously: 3.2 x 2.3 x 1.8 cm, volume 6.8 mL. Nodule characteristics: Composition: Solid/almost completely solid (2). Echogenicity: Isoechoic (1). Shape: Not taller than wide (0). Margins: Smooth (0). Echogenic Foci: None (0). ACR TI-RADS total points: 3 ACR TI-RADS category: 3 Significant change in size (>/= 20% in 2 dimensions and minimal increase of 2 mm or 50% or greater increase in volume): No Change in features: Not with accounting for differences in interobserver variability, as imaging findings appear similar to prior. NODES: No lymphadenopathy is seen in the tissue surrounding the thyroid gland. US/US thyroid IMPRESSION: A 3.6 cm TR 3 right midpole thyroid nodule not increased in size from prior which was previously sampled in 2020, recommend correlation with prior pathology. Thyroid US: 07/06/2021 Right Thyroid Lobe: 4.7 x 1.8 x 2.6 cm, volume 11.2 mL. Parenchyma: The gland echotexture is homogeneous. Thyroid vascularity is normal. Left Thyroid Lobe: 4.1 x 0.7 x 1.1 cm, volume 1.5 mL. Parenchyma: The gland echotexture is homogeneous. Thyroid vascularity is normal. Isthmus: 0.2 cm in maximum AP dimension. Estimated total number of nodules greater than or equal to 1 cm: 1. Panelboard Operator nodules are described as follows: 1. Location: Right mid pole. ?? ? Size: 2.9 x 1.3 x 2.2 cm, volume 4.2 mL. ?? ? Previous: 3.1 x 1.5 x 1.9 cm, volume 4.6 mL. ?? ? Nodule characteristics: ?? ? Composition: Solid/almost completely solid (2). ?? ? Echogenicity: Hypoechoic (2). ?? ? Shape: Not taller than wide (0). ?? ? Margins: Smooth (0). ?? ? Echogenic Foci: None (0). ?? ? ACR TI-RADS total points: 4 ?? ? ACR TI-RADS category: 4 NODES: No lymphadenopathy is seen in the tissue surrounding the thyroid gland. Labs: Laboratory Tests 06/13/21 Unknown TSH 2.78 Laboratory Tests 09/04/22 07/03/23 15:05 16:45 25-OH Vitamin D Total 22 L TSH 2.84 Free T4 0.81 [facility] Medical History (Updated 01/03/24 @ 13:09 by Orville Andrews PA-C) Vitamin D deficiency Migraine with aura Thyroid nodule Swollen neck Goiter Surgical History History of esophagogastroduodenoscopy (EGD) Family History Mother Diabetes Thyroid disease Father No problems noted. Other Mental health disorder Social History Housing: House Alcohol intake: never Patient Tobacco Use Status: Never used Tobacco e-Cigarette/Vaping Use: Never Used Second Hand Smoke Exposure: No service: No Current occupational status: employed Sexual orientation: Straight/Heterosexual Gender identity: Female Cognitive needs: No Hearing needs: No Vision needs: No Female Reproductive History Menstrual Age of Menarche: 13 Physical Exam Vital Signs: Last Vital Signs Pulse 78 04/01/24 08:02 BP 114/78 04/01/24 08:02 BMI result Body Mass Index 22.5 Assessment & Plan Assessment & Plan (1) Thyroid nodule: Code(s): E04.1 - Nontoxic single thyroid nodule Category: Medical Plan: 28-year-old female with no family history of thyroid cancer, with no personal history of head or neck radiation with a right-sided 3.6 cm thyroid nodule, with benign cytology in 2020, with the enlarging thyroid nodule recently that was symptomatic, status post right lobectomy with Dr. Oralia Webber at [facility] on 03/25/2024. Pathology is pending at this point. She does not have any symptoms of hypo or hyperthyroidism right now she is only 1 week out of surgery. She is doing well postoperatively. We will plan to do labs in another 3-4 weeks. Plan: -ordered TSH, free T4 in 3-4 weeks -follow up in mid April with another set of labs -follow up pathology results (2) Vitamin D deficiency: Code(s): E55.9 - Vitamin D deficiency, unspecified Category: Medical Plan: Vitamin-D noted to be low at 22 from 2022. She is taking an [id number] vitamin-D supplement, unsure of the dose. Plan: -repeat vitamin-D levels Plan I spent 30 minutes in reviewing the record, seeing the patient and documenting in the medical record. Orders: Orders Free T4 (Free Thyroxine) 3 Weeks E04.1 - Nontoxic single thyroid nodule Thyroid Stimulating Hormone 3 Weeks E04.1 - Nontoxic single thyroid nodule Vitamin D 25-OH Total Today E55.9 - Vitamin D deficiency, unspecified Patient Instructions: Do blood work in 3 weeks sometime right after new years We will also order blood work for right before your next appointment with me in april Coding Level of Care Code Est Pt Level 4 (76286) Diagnoses Thyroid nodule E04.1 Vitamin D deficiency E55.9 Time Spent (min) 30
== END 2024-04-01 08:26 | disposition home or self-care (01) ==
PROVIDERS: PCP Physician Assistant; Visit Provider Student in an Organized Health Care Education/Training Program
DX: E04.1 Nontoxic single thyroid nodule (principal); E55.9 Vitamin D deficiency, unspecified
CPT/HCPCS: 99214

== ENCOUNTER 2024-04-14 15:56 | Outpatient (AMB) | payer OTHER, SELFPAY ==
[2024-04-14 16:19] VITALS: BP 112/82; PULSE 86; O2SAT 99; BMI 22.4
--- NOTE | 2024-04-14 16:19 | A.OFFPC_ITS ---
Vital Signs 04/14/24 16:19 Height 4 ft 11 in Weight 111 lb BMI 22.4 BP 112/82 Blood Pressure Location Lt brachial Position Sitting Pulse 86 Pulse Source Pulse Oximeter Pulse Oximetry (%) 99 Oxygen Delivery Method Room Air Intake Visit Reasons: PE Intake Note: Patient is here today for a physical. 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 Accompanied by: Self / Same As Patient Allergies sertraline Adverse Reaction (Intermediate, Verified 04/14/24 16:24) Fatigued seasonal allergies Allergy (Intermediate, Uncoded 04/14/24 16:24) Itching Medication List - Last Reconciled 04/14/24 by Orville Andrews PA-C benzoyl peroxide 5% 1 appl topical Q OTHER DAY PRN 15 days esomeprazole magnesium (Nexium) 40 mg PO DAILY sucralfate 1 g PO BEDTIME Tobacco use date assessed: 04/14/24 Dental Screening Dental Screen Date: 04/14/24 Did you have a dental visit in the last 12 months?: Yes Did you have a dental problem in the last 6 months where you did not have access to dental care?: No Was dental information given to patient?: Patient has dentist HPI PE HPI Details Patient is a 28-year-old female here today for a routine annual physical. Patient has a past medical history significant for GERD, anxiety, large thyroid nodule. concerns--> Recently has partial thyroidectomy in will be followed by endocrinology here in [place]. She is due for TSH testing to assure normal. She does report having flashes after surgery which could have been related to thyroid medication. GERD: Patient followed by gastroenterology and continues on Nexium as needed for her GERD symptoms. 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 Other Mental health disorder Social History Housing: House Alcohol intake: never Patient Tobacco Use Status: Never used Tobacco e-Cigarette/Vaping Use: Never Used Second Hand Smoke Exposure: No service: No Current occupational status: employed Current occupation: [employer] Sexual orientation: Straight/Heterosexual Gender identity: Female Cognitive needs: No Hearing needs: No Vision needs: No Female Reproductive History Menstrual Age of Menarche: 13 Questionnaire PHQ-9 Over the last 2 weeks, how often have you been bothered by any of the following problems? 1. Little interest or pleasure in doing things: not at all 2. Feeling down, depressed, or hopeless: not at all 3. Trouble falling or staying asleep, or sleeping too much: several days 4. Feeling tired or having little energy: several days 5. Poor appetite or overeating: not at all 6. Feeling bad about yourself - or that you are a failure or have let yourself or your family down: not at all 7. Trouble concentrating on things, such as reading the newspaper or watching television: not at all 8. Moving or speaking so slowly that other people could have noticed. Or the opposite - being so fidgety or restless that you have been moving around a lot more than usual: not at all 9. Thoughts that you would be better off or of hurting yourself in some way: not at all Total score: 2 Depression Screening Interpretation: Negative Depression Screening Done: Yes 21833 - PHQ-9 Billing: Yes Source: Developed by Drs. Marcellsu Santana, Venita Arnett, Jose Alberto Hernández and colleagues, with an educational lam from [employer]. Thrive Questionnaire Date Thrive assessed: 04/14/24 I am a: Patient What is your living situation today?: I have a steady place to live Within the past 12 months, did the food you bought not last and you didn't have the money to get more?: Never true Within the past 12 months, did you worry whether your food would run out before you got money to buy more?: Never true Do you have trouble paying for medicines?: No Do you have trouble getting transportation to medical appointments?: No Do you have trouble paying your heating and electricity bill?: No Do you have trouble taking care of your child, family member or friend?: No Do you have trouble with day-to-day activities such as bathing, preparing meals, shopping, managing finances, etc.?: No Are you currently unemployed and looking for a job?: No Are you interested in more education?: No Please select the resources that you would like help with: None Currently or been in a relationship where the following occur: No concerns reported THRIVE Score: 0 AUDIT C Alcohol Use Questionnaire (AUDIT-C) 1. How often do you have a drink containing alcohol?: Never 3. How often do you have six or more drinks on one occasion?: Never Total Score: 0 JEANNA-7 AMB Questionnaire JEANNA-7 Date JEANNA - 7 assessed: 04/14/24 Feeling nervous, anxious, or on edge: 1 = Several days Not being able to stop or control worryin = Several days Worrying too much about different things: 0 = Not at all Trouble relaxin = Several days Being so restless that it is hard to sit still: 0 = Not at all Becoming easily annoyed or irritable: 0 = Not at all Feeling afraid as if something awful might happen: 0 = Not at all Total JEANNA-7 score (0-4 normal; 5-9 mild; 10-14 moderate; 15-21 severe): 3 Source: Developed by Drs. Marcellus Santana, Venita Arnett, Jose Alberto Hernández and colleagues, with an educational lam from [employer]. JEANNA-7 Assessment Billing JEANNA-7 Assessment Tool: JEANNA-7 Assessment 91603 Review of Systems Const Denies body aches, Denies chills, Denies excessive sweating, Denies fatigue, Denies fever(s) and Denies headache(s) Eyes Denies blurry vision ENT Denies dysphagia, Denies vertigo, Denies dizziness, Denies headache(s), Denies hearing loss and Denies tinnitus Card Denies chest pain, Denies chest pain with activity, Denies syncope, Denies irregular heart rhythm and Denies dyspnea Resp Denies chest congestion, Denies cough, Denies hemoptysis, Denies dyspnea and Denies wheezing GI Denies abdominal pain, Denies melena, Denies hematochezia, Denies coffee ground emesis, Denies dysphagia, Denies diarrhea, Denies nausea and Denies vomiting Denies urinary frequency, Denies dysuria, Denies urinary hesitancy and Denies urinary urgency Musc Details: + upper back pain Reports back pain, Denies arthralgias, Denies limited range of motion, Denies muscle cramps and Denies muscle weakness Skin/Breast Denies rash and Denies skin ulcer Neuro Denies Abnormal speech present, Denies confusion, Denies vertigo, Denies dizziness, Denies syncope, Denies headache(s), Denies memory loss and Denies seizure-like activity Psych Denies anxiety, Denies confusion, Denies depression, Denies memory loss, Denies panic attacks and Denies paranoia Endo Denies excessive sweating, Denies fatigue, Denies flushing, Denies polydipsia and Denies polyuria Aller/Immun Denies wheezing Physical exam (Primary Care) Vital Signs: Last Vital Signs Pulse 86 04/14/24 16:19 BP 112/82 04/14/24 16:19 Pulse Ox 99 04/14/24 16:19 Oxygen Delivery Method Room Air 04/14/24 16:19 BMI result Body Mass Index 22.4 Tobacco/Smoking Status: Tobacco use Status Tobacco use date assessed 04/14/24 04/14/24 16:21 Patient Tobacco Use Status Never used Tobacco 04/14/24 16:21 e-Cigarette/Vaping Use Never Used 04/14/24 16:21 PHQ-9: PHQ-9 Score PHQ-9: Total score 2 04/14/24 16:21 Depression Screening Interpretation: Negative Thrive Assessment: Date of Thrive Assessment Date Thrive assessed 04/14/24 04/14/24 16:21 Currently or been in a relationship where the following occur: No concerns reported Const General: cooperative, comfortable, no acute distress, alert and awake; No confusion Orientation/consciousness: oriented to person, oriented to place, patient oriented x3 and No confusion HENMT Head: Yes normocephalic Ears: external ears normal and TM's normal bilaterally Face and sinus: No sinus tenderness Mouth: Normal oral and palatal mucosa present and tongue normal Teeth and gingiva: dentition normal and gingiva normal Throat: Yes posterior oropharynx normal, Yes tonsils normal and Yes uvula midline Eyes Conjunctivae: conjunctivae normal Sclerae: sclerae normal Pupils: Equal, round and reactive pupils present EOM: EOMs intact bilaterally Direct Ophthalmoscopy: No no photophobia Neck Neck: Yes no lymphadenopathy, No tender and Yes no JVD Thyroid: Thyroid normal Carotids: no bruits Chest Chest palpation & inspection: no tenderness Resp Effort & Inspection: normal respiratory effort, no audible wheezes, not labored and no stridor Auscultation: no crackles, no rales, no rhonchi and no wheezes Cardio Jugular venous distension: no JVD Rate: regular rate, not bradycardic and not tachycardic Rhythm: regular rhythm Bruits: no carotid bruits Peripheral pulses: Peripheral pulses 2+ throughout GI Inspection: Yes normal to inspection, No abdominal wall ecchymosis and No visible herniation Palpation (GI): Soft to palpation, nontender, no guarding, not rigid and No hepatosplenomegaly present Auscultation: normoactive bowel sounds General: Yes no CVA tenderness Back/Spine/Pelvis Back: no CVA tenderness and No back tenderness Cervical Spine: cervical ROM normal Thoracic/Lumbar Spine: thoracic and lumbar spine normal to inspection, straight leg raise negative bilaterally, No thoraco-lumbar ROM limited and No lumbar spinal tenderness Skin Lesions: no lesions Rashes: no rashes Wounds: no wounds Neuro General: oriented to person, oriented to place, patient oriented x3, CN's II-XI intact bilaterally and No confusion Cranial nerves: Yes Equal, round and reactive pupils present and Yes Normal accommodation reflex present Cognition (Neuro): normal cognition Speech: No Abnormal speech present Gait exam (Neuro): Normal gait present Motor exam (neuro): 5/5 motor strength present throughout Extrem Right upper extremity: full ROM; no cyanosis Left upper extremity: full ROM; no cyanosis Right lower extremity: no edema Left lower extremity: no edema Psych Appearance: grossly normal Mental Status: mental status grossly normal Affect: normal affect Attitude: cooperative Thought process: Normal thought process present Coding Level of Care Code Est Pt Prev Care 18-39y(62868) Diagnoses Annual physical exam Z00.00 Screening for diabetes mellitus (DM) Z13.1 History of thyroidectomy Z98.890; Z90.89 Thoracic radiculitis M54.14 Cervical radiculitis M54.12 Additional Codes JEANNA-7 Assessment Billing - JEANNA-7 Assessment Tool: JEANNA-7 Assessment 52720 ([id number]) PHQ-9 - 23156 - PHQ-9 Billing: Yes ([id number]) Assessment & Plan Assessment & Plan (1) Annual physical exam: Code(s): Z00.00 - Encounter for general adult medical examination without abnormal findings Category: Medical Plan: As per HPI (2) Screening for diabetes mellitus (DM): Code(s): Z13.1 - Encounter for screening for diabetes mellitus Category: Medical Plan: As per HPI (3) History of thyroidectomy: Code(s): Z98.890 - Other specified postprocedural states; Z90.89 - Acquired absence of other organs Category: Surgical Plan: Patient followed by [place] end[facility]ology. Is status post partial thyroidectomy. Will be getting TSH checked in the next few weeks to assure normal. (4) Thoracic radiculitis: Code(s): M54.14 - Radiculopathy, thoracic region Category: Medical Plan: Intermittent episodes pretty severe neck and thoracic spine pain. Has not used any [id number] analgesics. She reports her boyfriend has 2 cracker back in order to feel better. She is considering physical therapy and/or chiropractics. She is willing to try a muscle relaxer to use on an as needed basis. (5) Cervical radiculitis: Code(s): M54.12 - Radiculopathy, cervical region Category: Medical Plan: As above Orders: Orders XR cervical spine 4V Today M54.12 - Radiculopathy, cervical region XR thoracic spine 3V Today M54.14 - Radiculopathy, thoracic region Comprehensive [place]. Panel Fast Today Z13.1 - Encounter for screening for diabetes mellitus Complete Blood Count no Diff Today K21.9 - Gastro-esophageal reflux disease without esophagitis Vitamin D 25-OH Total Today E55.9 - Vitamin D deficiency, unspecified Medications: New baclofen 10 mg PO BEDTIME 14 days 14 tabs 0RF M54.14 - Radiculopathy, thoracic region
== END 2024-04-14 16:42 | disposition home or self-care (01) ==
PROVIDERS: PCP Physician Assistant; Visit Provider Physician Assistant
DX: Z00.00 Encounter for general adult medical examination without abnormal findings (principal); Z13.1 Encounter for screening for diabetes mellitus; Z98.890 Other specified postprocedural states; Z90.89 Acquired absence of other organs; M54.14 Radiculopathy, thoracic region; M54.12 Radiculopathy, cervical region

== ENCOUNTER → 2024-04-14 15:56 | Outpatient (BNVA) | payer OTHER, SELFPAY | PROVIDERS: PCP Physician Assistant; Visit Provider Physician Assistant | DX: Z00.00 Encounter for general adult medical examination without abnormal findings (principal); M54.14 Radiculopathy, thoracic region; M54.12 Radiculopathy, cervical region; Z90.89 Acquired absence of other organs | CPT/HCPCS: 96127 ==

== ENCOUNTER 2024-04-26 10:18 | Outpatient (REF) | payer OTHER, SELFPAY ==
[2024-04-26 10:51] LABS: Hematocrit 39.5 % (37.0-47.0); Hemoglobin 12.5 g/dl (12.0-16.0); Mean Corpuscular HGB Conc 31.6 g/dl (31.0-35.0); Mean Corpuscular Hemoglobin 28.7 pg (27.0-33.0); Mean Corpuscular Volume 90.6 fL (80.0-98.0); Platelet Count 273 X10*3/uL (160-400); Red Blood Count 4.36 X10*6/uL (4.20-5.50); Red Cell Distribution Width 12.8 % (11.0-16.0); White Blood Count 6.2 X10*3/uL (4.8-10.8)
[2024-04-26 11:36] LABS: Alanine Aminotransferase 10 U/L (0-31); Albumin Level 4.2 g/dL (3.5-5.0); Alkaline Phosphatase 71 U/L (39-117); Anion Gap 9 (12-20); Aspartate Amino Transferase 18 U/L (5-31); Bilirubin Total 0.6 mg/dL (0.0-1.0); Blood Urea Nitrogen 11 mg/dL (9-16); Calcium 9.5 mg/dL (8.4-10.2); Carbon Dioxide 25 mmol/L (22-29); Chloride 110 mmol/L (96-108); Estimated Glomerular Filt Rate > 60; Glucose Fasting 87 mg/dL (60-99); Potassium 3.9 mmol/L (3.3-5.1); Sodium 140 mmol/L (135-145); Total Protein 7.5 g/dL (6.5-8.0)
[2024-04-26 11:55] LABS: Free T4 (Free Thyroxine) 0.93 ng/dL (0.71-1.85); Thyroid Stimulating Hormone 7.27 uIU/mL (0.32-4.0); Vitamin D 25-OH Total 20.7 ng/mL (>30)
== END 2024-04-26 10:19 | disposition home or self-care (01) ==
LOC: HO.LAB 10:18
PROVIDERS: Absent Provider Internal Medicine; PCP Physician Assistant; Referring Provider Student in an Organized Health Care Education/Training Program; Visit Provider Physician Assistant
DX: E04.1 Nontoxic single thyroid nodule (principal); E55.9 Vitamin D deficiency, unspecified; Z13.1 Encounter for screening for diabetes mellitus; K21.9 Gastro-esophageal reflux disease without esophagitis
CPT/HCPCS: 36415; 80053; 82306; 84439; 84443; 85027; 86481

== ENCOUNTER 2024-05-12 07:57 | Outpatient (AMB) | payer OTHER, SELFPAY ==
[2024-05-12 08:01] VITALS: BP 104/70; PULSE 86; BMI 23.1
--- NOTE | 2024-05-12 08:01 | A.OFFVIS_ITS ---
Vital Signs 05/12/24 08:01 Height 4 ft 11 in Weight 114 lb 3.191 oz BMI 23.1 BP 104/70 Blood Pressure Location Lt brachial Position Sitting Pulse 86 Pulse Source Pulse Oximeter Intake Visit Reasons: Hyperthyroidism Intake Note: Patient present today for Hyperthyroidism office visit. 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 Oralia Webber at [facility] on 03/25/2024, coming today for follow up. HPI from prior visit She has a 3.1 cm RMP thyroid nodule and underwent FNA biopsy of this 09/09/2020. Cytology was benign (bethesda category II). She had a repeat US 07/06/2021 which was largely unchanged. She was complaining of occasional dysphagia, occasional sensation of pressure in the neck particularly while lying flat. She also complains of mood swings. She denies any vocal hoarseness. She denies any symptoms of hyper or hypothyroidism. She denies any personal history of radiation to the head or the neck. She denies any family history of thyroid cancer. Mother has hypothyroidism. Repeat ultrasound in June 2023 showed enlarging size of the nodule up to 3.6 cm. Given she was symptomatic with enlarging size of the nodule, it was decided to refer her to Endocrine surgery. She underwent right thyroid lobectomy with Dr. Oralia Webber at [facility] on 03/25/2024. Interval history Met with Dr. Gary office for postoperative visit was told pathology is benign but we need to obtain records . Reports excessive fatigue, headaches, soreness, reports constipation, hairloss, LMP 04/25/24, periods regular Takes biotin but stopped it 4 days prior to blood work Denies any numbness or tingling around her mouth. Taking vitamin D over the counter not sure of the dose Not planning any . Not on contraceptives. 2 pregnancies before Physical exam General: sitting comfortably in no acute distress HEENT: normocephalic/atraumatic, Neck: supple, symmetrical, well healed scar Cardiac: normal heart sounds Pulm: normal breath sounds B/L, no added breath sounds Abd: not distended, no tenderness Extremities: no edema, no signs of myxedema Laboratory Tests 08/16/20 04/26/24 05/09/24 14:35 10:27 16:30 25-OH Vitamin D Total 20.7 L 22.4 L TSH 7.27 H 10.79 H Free T4 0.93 0.81 Thyroglobulin Antibody <1 Thyroid Peroxidase Ab <1 Imaging US THYROID 07/14 CLINICAL INFORMATION: Nontoxic single thyroid nodule. COMPARISON: Thyroid ultrasound 06/22/2022 and 07/06/2021. Ultrasound-guided thyroid biopsy 09/09/2020. TECHNIQUE: Linear transducer grayscale and color Doppler examination with attention to the region of the thyroid. FINDINGS: SIZE: Measurements of the thyroid lobes and nodules are given in sagittal, anteroposterior and transverse dimensions respectively. Right Thyroid Lobe: 5.3 x 2.2 x 2.4 cm, volume 15.2 mL. Previously 4.7 x 2.1 x 2.1 cm, volume 10.7 mL. Parenchyma: The gland echotexture is heterogeneous. Thyroid vascularity is increased. Left Thyroid Lobe: 3.6 x 0.9 x 0.9 cm, volume 1.4 mL. Previously 0.6 x 0.9 x 0.9 cm, volume 1.5 mL. Parenchyma: The gland echotexture is homogeneous. Thyroid vascularity is normal. Isthmus: 0.08 cm in maximum AP dimension. Previously 0.2 cm. Estimated total number of nodules greater than or equal to 1 cm: 1. Wound Care Coordinator nodules are described as follows: 1. Location: Right mid pole. Size: 3.6 x 1.9 x 2.4 cm, volume 8.6 mL. Previously: 3.2 x 2.3 x 1.8 cm, volume 6.8 mL. Nodule characteristics: Composition: Solid/almost completely solid (2). Echogenicity: Isoechoic (1). Shape: Not taller than wide (0). Margins: Smooth (0). Echogenic Foci: None (0). ACR TI-RADS total points: 3 ACR TI-RADS category: 3 Significant change in size (>/= 20% in 2 dimensions and minimal increase of 2 mm or 50% or greater increase in volume): No Change in features: Not with accounting for differences in interobserver variability, as imaging findings appear similar to prior. NODES: No lymphadenopathy is seen in the tissue surrounding the thyroid gland. US/US thyroid IMPRESSION: A 3.6 cm TR 3 right midpole thyroid nodule not increased in size from prior which was previously sampled in 2020, recommend correlation with prior pathology. Thyroid US: 07/06/2021 Right Thyroid Lobe: 4.7 x 1.8 x 2.6 cm, volume 11.2 mL. Parenchyma: The gland echotexture is homogeneous. Thyroid vascularity is normal. Left Thyroid Lobe: 4.1 x 0.7 x 1.1 cm, volume 1.5 mL. Parenchyma: The gland echotexture is homogeneous. Thyroid vascularity is normal. Isthmus: 0.2 cm in maximum AP dimension. Estimated total number of nodules greater than or equal to 1 cm: 1. Wound Care Coordinator nodules are described as follows: 1. Location: Right mid pole. ?? ? Size: 2.9 x 1.3 x 2.2 cm, volume 4.2 mL. ?? ? Previous: 3.1 x 1.5 x 1.9 cm, volume 4.6 mL. ?? ? Nodule characteristics: ?? ? Composition: Solid/almost completely solid (2). ?? ? Echogenicity: Hypoechoic (2). ?? ? Shape: Not taller than wide (0). ?? ? Margins: Smooth (0). ?? ? Echogenic Foci: None (0). ?? ? ACR TI-RADS total points: 4 ?? ? ACR TI-RADS category: 4 NODES: No lymphadenopathy is seen in the tissue surrounding the thyroid gland. Labs: Laboratory Tests 06/13/21 Unknown TSH 2.78 Laboratory Tests 09/04/22 07/03/23 15:05 16:45 25-OH Vitamin D Total 22 L TSH 2.84 Free T4 0.81 [facility] Medical History Vitamin D deficiency Migraine with aura Thyroid nodule Swollen neck Goiter Surgical History History of thyroidectomy History of esophagogastroduodenoscopy (EGD) Family History Mother Diabetes Thyroid disease Father No problems noted. Other Mental health disorder Social History Housing: House Alcohol intake: never Patient Tobacco Use Status: Never used Tobacco e-Cigarette/Vaping Use: Never Used Second Hand Smoke Exposure: No service: No Current occupational status: employed Current occupation: [employer] Sexual orientation: Straight/Heterosexual Gender identity: Female Cognitive needs: No Hearing needs: No Vision needs: No Female Reproductive History Menstrual Age of Menarche: 13 Physical Exam Vital Signs: Last Vital Signs Pulse 86 05/12/24 08:01 BP 104/70 05/12/24 08:01 BMI result Body Mass Index 23.1 Assessment & Plan Assessment & Plan (1) Hypothyroidism: Code(s): E03.9 - Hypothyroidism, unspecified Category: Medical Qualifiers: Hypothyroidism type: postoperative Qualified Code(s): E89.0 - Postprocedural hypothyroidism (2) Thyroid nodule: Code(s): E04.1 - Nontoxic single thyroid nodule Category: Medical Plan: 28-year-old female with no family history of thyroid cancer, with no personal history of head or neck radiation with a right-sided 3.6 cm thyroid nodule, with benign cytology in 2020, with the enlarging thyroid nodule recently that was symptomatic, status post right lobectomy with Dr. Oralia Webber at [facility] on 03/25/2024. She reports pathology was benign but I do not have these records, we will obtain. Labs from 04/26/2024 showed TSH elevated at 7.27 with normal free T4 of 0.93, repeat labs again showed TSH worsened in elevated at 10.79, free T4 of 0.81 She is becoming hypothyroid, currently subclinical hypothyroidism with TSH above 10. She is also quite symptomatic. Plan: -start levothyroxine 50 mcg daily -repeat TSH, free T4 in 6 weeks -follow up in 3 months -follow up pathology results (3) Vitamin D deficiency: Code(s): E55.9 - Vitamin D deficiency, unspecified Category: Medical Plan: Vitamin-D noted to be low at 22 from 2022. She is taking an [id number] vitamin-D supplement, unsure of the dose. Repeat vitamin-D level noted to be low at 22.4 from 05/17. Plan: Start taking vitamin-D 1000 units daily -we will plan to repeat vitamin-D levels in 3 months . Plan I spent 30 minutes in reviewing the record, seeing the patient and documenting in the medical record. Orders: Orders Thyroid Stimulating Hormone 6 Weeks E03.9 - Hypothyroidism, unspecified Free T4 (Free Thyroxine) 6 Weeks E03.9 - Hypothyroidism, unspecified Medications: New levothyroxine 50 mcg PO DAILY 30 tabs 4RF cholecalciferol (vitamin D3) 25 mcg PO DAILY 1 month 30 caps 8RF Patient Instructions: Please send me a portal message in 2 weeks to ensure I went through your pathology results Start levothyroxine 50 mcg daily, first thing in the morning on empty stomach , wait an hour before breakfast Do blood work in 6 weeks , stop any biotin containing supplements 4 days prior to blood work If you get , please let us know right away Coding Level of Care Code Est Pt Level 4 (37654) Diagnoses Postoperative hypothyroidism E89.0 Hypothyroidism type: postoperative Thyroid nodule E04.1 Vitamin D deficiency E55.9 Time Spent (min) 30
== END 2024-05-12 08:48 | disposition home or self-care (01) ==
PROVIDERS: PCP Physician Assistant; Visit Provider Student in an Organized Health Care Education/Training Program
DX: E89.0 Postprocedural hypothyroidism (principal); E04.1 Nontoxic single thyroid nodule; E55.9 Vitamin D deficiency, unspecified
CPT/HCPCS: 99214

== ENCOUNTER → 2024-05-12 07:57 | Outpatient (BNVA) | payer OTHER, SELFPAY | PROVIDERS: PCP Physician Assistant; Visit Provider Student in an Organized Health Care Education/Training Program ==

== ENCOUNTER 2024-06-18 16:06 | Outpatient (REF) | payer OTHER, SELFPAY ==
[2024-06-18 17:54] LABS: Free T4 (Free Thyroxine) 1.01 ng/dL (0.71-1.85); Thyroid Stimulating Hormone 2.33 uIU/mL (0.32-4.0)
== END 2024-06-18 16:07 | disposition home or self-care (01) ==
LOC: HO.LAB 16:06
PROVIDERS: PCP Physician Assistant; Visit Provider Student in an Organized Health Care Education/Training Program
DX: E03.9 Hypothyroidism, unspecified (principal)
CPT/HCPCS: 36415; 84439; 84443

== ENCOUNTER 2024-08-15 16:15 | Outpatient (REF) | payer OTHER, SELFPAY ==
[2024-08-15 17:35] LABS: Free T4 (Free Thyroxine) 0.96 ng/dL (0.71-1.85); Thyroid Stimulating Hormone 1.21 uIU/mL (0.32-4.0)
== END 2024-08-15 16:16 | disposition home or self-care (01) ==
LOC: HO.LAB 16:15
PROVIDERS: PCP Physician Assistant; Visit Provider Student in an Organized Health Care Education/Training Program
DX: E89.0 Postprocedural hypothyroidism (principal)
CPT/HCPCS: 36415; 84439; 84443

== ENCOUNTER 2024-08-19 08:23 | Outpatient (AMB) | payer OTHER, SELFPAY ==
[2024-08-19 08:24] VITALS: BP 108/68; PULSE 83; O2SAT 96; BMI 22.4
--- NOTE | 2024-08-19 08:24 | MHC.OFFVIS ---
Vital Signs 08/19/24 08:24 Height 4 ft 11 in Weight 111 lb 1.808 oz BMI 22.4 BP 108/68 Blood Pressure Location Lt brachial Position Sitting Pulse 83 Pulse Source Pulse Oximeter Pulse Oximetry (%) 96 Oxygen Delivery Method Room Air Intake Visit Reasons: Hyperthyroidism Intake Note: Patient present today for Hyperthyroidism office visit. 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 Accompanied by: Spouse Allergies sertraline Adverse Reaction (Intermediate, Verified 08/19/24 08:28) Fatigued seasonal allergies Allergy (Intermediate, Uncoded 08/19/24 08:28) Itching Medication List - Last Reconciled 08/19/24 by Jenniffer Miller MD baclofen 10 mg PO BEDTIME 14 days benzoyl peroxide 5% 1 appl topical Q OTHER DAY PRN 15 days cholecalciferol (vitamin D3) 25 mcg PO DAILY 1 month esomeprazole magnesium (Nexium) 40 mg PO DAILY levothyroxine 50 mcg PO DAILY sucralfate 1 g PO BEDTIME HPI Comments Details: 28 YO Female with a PMHx of a 3.6 cm symtomatic right sided thyroid nodule with benign fna status post right lobectomy with Dr. Oralia Webber at [facility] on 03/25/2024, coming today for follow up. HPI from prior visit She has a 3.1 cm RMP thyroid nodule and underwent FNA biopsy of this 09/09/2020. Cytology was benign (bethesda category II). She had a repeat US 07/06/2021 which was largely unchanged. She was complaining of occasional dysphagia, occasional sensation of pressure in the neck particularly while lying flat. She also complains of mood swings. She denies any vocal hoarseness. She denies any symptoms of hyper or hypothyroidism. She denies any personal history of radiation to the head or the neck. She denies any family history of thyroid cancer. Mother has hypothyroidism. Repeat ultrasound in June 2023 showed enlarging size of the nodule up to 3.6 cm. Given she was symptomatic with enlarging size of the nodule, it was decided to refer her to Endocrine surgery. She underwent right thyroid lobectomy with Dr. Oralia Webber at [facility] on 03/25/2024. Pathology was benign. Interval history Still feeling tired. Reports constipation, hairloss. LMP 07/25/24, periods regular Takes biotin but stopped it 4 days prior to blood work 08/15/2024: TSH 1.1, free T4 0.96 Not planning any . Not on contraceptives. 2 pregnancies before Physical exam General: sitting comfortably in no acute distress HEENT: normocephalic/atraumatic, Neck: supple, symmetrical, well healed scar Cardiac: normal heart sounds Pulm: normal breath sounds B/L, no added breath sounds Abd: not distended, no tenderness Extremities: no edema, no signs of myxedema Laboratory Tests 08/16/20 04/26/24 05/09/24 14:35 10:27 16:30 25-OH Vitamin D Total 20.7 L 22.4 L TSH 7.27 H 10.79 H Free T4 0.93 0.81 Thyroglobulin Antibody <1 Thyroid Peroxidase Ab <1 Laboratory Tests 04/26/24 05/09/24 06/18/24 10:27 16:30 16:25 TSH 7.27 H 10.79 H 2.33 Free T4 0.93 0.81 1.01 08/15/24 16:22 TSH 1.21 Free T4 0.96 Imaging US THYROID 07/14 CLINICAL INFORMATION: Nontoxic single thyroid nodule. COMPARISON: Thyroid ultrasound 06/22/2022 and 07/06/2021. Ultrasound-guided thyroid biopsy 09/09/2020. TECHNIQUE: Linear transducer grayscale and color Doppler examination with attention to the region of the thyroid. FINDINGS: SIZE: Measurements of the thyroid lobes and nodules are given in sagittal, anteroposterior and transverse dimensions respectively. Right Thyroid Lobe: 5.3 x 2.2 x 2.4 cm, volume 15.2 mL. Previously 4.7 x 2.1 x 2.1 cm, volume 10.7 mL. Parenchyma: The gland echotexture is heterogeneous. Thyroid vascularity is increased. Left Thyroid Lobe: 3.6 x 0.9 x 0.9 cm, volume 1.4 mL. Previously 0.6 x 0.9 x 0.9 cm, volume 1.5 mL. Parenchyma: The gland echotexture is homogeneous. Thyroid vascularity is normal. Isthmus: 0.08 cm in maximum AP dimension. Previously 0.2 cm. Estimated total number of nodules greater than or equal to 1 cm: 1. 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 Location: Right mid pole. Size: 3.6 x 1.9 x 2.4 cm, volume 8.6 mL. Previously: 3.2 x 2.3 x 1.8 cm, volume 6.8 mL. Nodule characteristics: Composition: Solid/almost completely solid (2). Echogenicity: Isoechoic (1). Shape: Not taller than wide (0). Margins: Smooth (0). Echogenic Foci: None (0). ACR TI-RADS total points: 3 ACR TI-RADS category: 3 Significant change in size (>/= 20% in 2 dimensions and minimal increase of 2 mm or 50% or greater increase in volume): No Change in features: Not with accounting for differences in interobserver variability, as imaging findings appear similar to prior. NODES: No lymphadenopathy is seen in the tissue surrounding the thyroid gland. US/US thyroid IMPRESSION: A 3.6 cm TR 3 right midpole thyroid nodule not increased in size from prior which was previously sampled in 2020, recommend correlation with prior pathology. Thyroid US: 07/06/2021 Right Thyroid Lobe: 4.7 x 1.8 x 2.6 cm, volume 11.2 mL. Parenchyma: The gland echotexture is homogeneous. Thyroid vascularity is normal. Left Thyroid Lobe: 4.1 x 0.7 x 1.1 cm, volume 1.5 mL. Parenchyma: The gland echotexture is homogeneous. Thyroid vascularity is normal. Isthmus: 0.2 cm in maximum AP dimension. Estimated total number of nodules greater than or equal to 1 cm: 1. 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 Location: Right mid pole. ?? ? Size: 2.9 x 1.3 x 2.2 cm, volume 4.2 mL. ?? ? Previous: 3.1 x 1.5 x 1.9 cm, volume 4.6 mL. ?? ? Nodule characteristics: ?? ? Composition: Solid/almost completely solid (2). ?? ? Echogenicity: Hypoechoic (2). ?? ? Shape: Not taller than wide (0). ?? ? Margins: Smooth (0). ?? ? Echogenic Foci: None (0). ?? ? ACR TI-RADS total points: 4 ?? ? ACR TI-RADS category: 4 NODES: No lymphadenopathy is seen in the tissue surrounding the thyroid gland. Labs: Laboratory Tests 06/13/21 Unknown TSH 2.78 Laboratory Tests 09/04/22 07/03/23 15:05 16:45 25-OH Vitamin D Total 22 L TSH 2.84 Free T4 0.81 [facility] Medical History (Updated 05/12/24 @ 08:43 by Jenniffer Miller MD) Hypothyroidism Vitamin D deficiency Migraine with aura Thyroid nodule Swollen neck Goiter Surgical History History of thyroidectomy History of esophagogastroduodenoscopy (EGD) Family History Mother Diabetes Thyroid disease Father No problems noted. Other Mental health disorder Social History Housing: House Alcohol intake: never Patient Tobacco Use Status: Never used Tobacco e-Cigarette/Vaping Use: Never Used Second Hand Smoke Exposure: No service: No Current occupational status: employed Current occupation: [employer] Sexual orientation: Straight/Heterosexual Gender identity: Female Cognitive needs: No Hearing needs: No Vision needs: No Female Reproductive History Menstrual Age of Menarche: 13 Assessment & Plan Assessment & Plan (1) Hypothyroidism: Code(s): E03.9 - Hypothyroidism, unspecified Category: Medical Qualifiers: Hypothyroidism type: postoperative Qualified Code(s): E89.0 - Postprocedural hypothyroidism (2) Thyroid nodule: Code(s): E04.1 - Nontoxic single thyroid nodule Category: Medical Plan: 28-year-old female with no family history of thyroid cancer, with no personal history of head or neck radiation with a right-sided 3.6 cm thyroid nodule, with benign cytology in 2020, with the enlarging thyroid nodule recently that was symptomatic, status post right lobectomy with Dr. Oralia Webber at [facility] on 03/25/2024. With benign pathology. Labs from 04/26/2024 showed TSH elevated at 7.27 with normal free T4 of 0.93, repeat labs again showed TSH worsened in elevated at 10.79, free T4 of 0.81 05/12/2024: Started on levothyroxine 50 mcg daily. Most recent lab results from July 2024 showed normal TSH and free T4., she is still does have symptoms of tiredness, however her blood work is okay so at this time I will keep her on the same dose. We will check another set of labs in 3 months. Plan: -continue levothyroxine 50 mcg daily -repeat TSH, free T4 in 3 months, we will reach out with the results -follow up in 6 months (3) Vitamin D deficiency: Code(s): E55.9 - Vitamin D deficiency, unspecified Category: Medical Plan: Vitamin-D noted to be low at 22 from 2022. She is on vitamin D 1000 units daily for the past 3-4 months. Repeat vitamin-D level noted to be low at 22.4 from 05/17. Plan: Continue vitamin-D 1000 units daily -we will check vitamin-D level as well with the next set of labs. . Plan See above Orders: Orders Free T4 (Free Thyroxine) 3 Months E55.9 - Vitamin D deficiency, unspecified, E89.0 - Postprocedural hypothyroidism Vitamin D 25-OH Total 3 Months E55.9 - Vitamin D deficiency, unspecified, E89.0 - Postprocedural hypothyroidism Thyroid Stimulating Hormone 3 Months E55.9 - Vitamin D deficiency, unspecified, E89.0 - Postprocedural hypothyroidism Medications: Refilled cholecalciferol (vitamin D3) 25 mcg PO DAILY 1 month 30 caps 9RF levothyroxine 50 mcg PO DAILY 30 tabs 9RF Patient Instructions: Continue levothyroxine 50 mcg daily Continue vitamin D 1000 units daily Do blood work in 3 months Follow up in 6 months Coding Level of Care Code Est Pt Level 4 (88384) Diagnoses Postoperative hypothyroidism E89.0 Hypothyroidism type: postoperative Thyroid nodule E04.1 Vitamin D deficiency E55.9
== END 2024-08-19 08:41 | disposition home or self-care (01) ==
LOC: HO.ENCR 08:24
PROVIDERS: PCP Physician Assistant; Visit Provider Student in an Organized Health Care Education/Training Program
DX: E89.0 Postprocedural hypothyroidism (principal); E04.1 Nontoxic single thyroid nodule; E55.9 Vitamin D deficiency, unspecified
CPT/HCPCS: 99214

== ENCOUNTER → 2024-08-19 08:23 | Outpatient (BNVA) | payer OTHER, SELFPAY | PROVIDERS: PCP Physician Assistant; Visit Provider Student in an Organized Health Care Education/Training Program ==

== ENCOUNTER 2024-11-14 12:18 | Outpatient (REF) | payer OTHER, SELFPAY ==
[2024-11-14 14:02] LABS: Free T4 (Free Thyroxine) 1.07 ng/dL (0.71-1.85); Thyroid Stimulating Hormone 1.21 uIU/mL (0.32-4.0)
== END 2024-11-14 12:19 | disposition home or self-care (01) ==
LOC: HO.LAB 12:18
PROVIDERS: PCP Physician Assistant; Visit Provider Student in an Organized Health Care Education/Training Program
DX: E89.0 Postprocedural hypothyroidism (principal); E55.9 Vitamin D deficiency, unspecified
CPT/HCPCS: 36415; 82306; 84439; 84443

== ENCOUNTER 2024-11-18 11:28 | Outpatient (REF) | payer OTHER, SELFPAY ==
[2024-11-18 15:32] LABS: Bacterial Vaginosis PCR NEGATIVE (Negative); Candida Group PCR NOT DETECTED (Not Detect); Candida glab krusei PCR NOT DETECTED (Not Detect); Trichomonas vaginalis PCR NOT DETECTED (Not Detect)
[2024-11-18 16:02] LABS: CT PCR NOT DETECTED (Not Detect.); NG PCR NOT DETECTED (Not Detect.)
== END 2024-11-18 11:29 | disposition home or self-care (01) ==
LOC: HO.LNP 11:28
PROVIDERS: PCP Physician Assistant; Visit Provider Advanced Practice Midwife
DX: Z01.419 Encounter for gynecological examination (general) (routine) without abnormal findings (principal); Z11.3 Encounter for screening for infections with a predominantly sexual mode of transmission
CPT/HCPCS: 81515; 87491; 87591

== ENCOUNTER 2024-11-18 11:28 | Outpatient (AMB) | payer OTHER, SELFPAY ==
[2024-11-18 11:33] VITALS: BP 104/60; BMI 22.4
--- NOTE | 2024-11-18 11:33 | A.OFFVIS_ITS ---
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'S Tender Required: No Financial Administrator: Financial Administrator Present Allergies sertraline Adverse Reaction (Intermediate, Verified 11/18/24 11:38) Fatigued seasonal allergies Allergy (Intermediate, Uncoded 11/18/24 11:38) Itching Medication List - Last Reconciled 11/18/24 by Lali Penny LPN cholecalciferol (vitamin D3) 25 mcg PO DAILY 1 month levothyroxine 50 mcg PO DAILY Is last menstrual period known: Yes Last menstrual period: 10/24/24 Post menopausal: No Patient : No Do you need a note to return to daycare/school/sports/work: No HPI Comments Details: Patient is a premenopausal woman presenting for annual examination. 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 Regular monthly menses. Currently is sexually active. She denies vaginal itching or irritation. STI screening offered; she accepts declines blood work. She is not interested in control is open to a future if it happens. She tries to eat healthy and stays active with exercise. Denies family history of breast, ovarian or colon cancer. Last pap smear 2023, negative. [facility] Medical History Hypothyroidism Vitamin D deficiency Migraine with aura Thyroid nodule Swollen neck Goiter Surgical History History of thyroidectomy History of esophagogastroduodenoscopy (EGD) Family History Mother Diabetes Thyroid disease Father No problems noted. Other Mental health disorder Social History Housing: House Alcohol intake: never Patient Tobacco Use Status: Never used Tobacco e-Cigarette/Vaping Use: Never Used Second Hand Smoke Exposure: No service: No Current occupational status: employed Current occupation: [employer] Sexual orientation: Straight/Heterosexual Gender identity: Female Cognitive needs: No Hearing needs: No Vision needs: No Female Reproductive History Menstrual Age of Menarche: 13 Duration of menses: 3-5 days Date of last menstrual period: 10/24/24 Total pregnancies: 2 Full term: 2 Number of Living Children: 2 History of abnormal pap smear: No History of STI: No Review of Systems Const All systems reviewed & are unremarkable except as noted in HPI and below Reports as per HPI Eyes Reports no additional complaints ENT Reports no additional complaints Card Reports no additional complaints Resp Reports no additional complaints GI Reports as per HPI and Reports no additional complaints Reports as per HPI Musc Reports no additional complaints Skin/Breast Reports as per HPI Neuro Reports no additional complaints Psych Reports no additional complaints Endo Reports no additional complaints Hugo/Lymph Reports no additional complaints Aller/Immun Reports no additional complaints Physical Exam Vital Signs: Last Vital Signs BP 104/60 11/18/24 11:33 BMI result Body Mass Index 22.4 Const General: cooperative, healthy appearing, no acute distress, well developed and alert Orientation/consciousness: patient oriented x3 HEENT Head: Yes normal to inspection Eyes General: appearance normal, both eyes and all related structures Neck Neck: Yes normal visual inspection (midline scar-partial thyroidectomy) Thyroid: Thyroid normal Chest Chest palpation & inspection: normal inspection of the chest and other (no puckering, dimpling, peau de orange, retraction, discharge, masses) Breast/axilla inspection: normal inspection of the breasts Breast/axilla palpation: normal palpation of the breasts Resp Effort & Inspection: normal respiratory effort GI Inspection: Yes normal to inspection Palpation (GI): Soft to palpation Rectal Exam - Female: deferred General: Yes bladder normal to palpation External Female Exam: normal external appearance and normal appearance of the urethra Speculum Exam - Vagina: normal appearance of the vagina, normal palpation and normal vaginal discharge Speculum Exam - Cervix: normal appearance of the cervix and normal palpation Bimanual exam- vagina & uterus: normal bimanual exam, normal palpation, uterine size normal, bladder normal to palpation, normal palpation and non-tender Bimanual Exam- Adnexa, other: no masses Skin General skin exam: no rashes or lesions noted Rashes: no rashes Neuro General: patient oriented x3 Cognition (Neuro): normal cognition Extrem General: Yes normal to inspection Psych Attitude: cooperative Thought process: Normal thought process present Assessment & Plan Assessment & Plan (1) Well woman exam with routine gynecological exam: Code(s): Z01.419 - Encounter for gynecological examination (general) (routine) without abnormal findings Category: Medical Plan Discussed: Current recommendations for pap smears per ASCCP guidelines. GC chlamydia and BV panel obtained. Breast awareness and periodic breast exams. Maintain a healthy lifestyle including a well balanced diet and routine exerci se. Initiate vitamins for the benefit of folic acid prevention of neural tube defects. If late for menses do home tests if positive follow up in office for care. Patient verbalizes understanding and agrees to the plan of care. She was given opportunity to ask questions and all questions were answered to the best of my ability. 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 This note is constructed using voice recognition software. While every effort has been made to ensure accuracy, nutrition intern errors may have been included. Orders: Orders CT NG by PCR Vag/Cerv Today Z11.3 - Encounter for screening for infections with a predominantly sexual mode of transmission Bacterial Vaginosis Panel Today Z11.3 - Encounter for screening for infections with a predominantly sexual mode of transmission Medications: New PNV,calcium [id number] acid 27 mg iron- 1 mg ( Vitamins Plus Low Iron) 1 tab PO DAILY 90 tabs 4RF Coding Level of Care Code Est Pt Prev Care 18-39y(08634) Diagnoses Well woman exam with routine gynecological exam Z01.419
== END 2024-11-18 15:44 | disposition home or self-care (01) ==
LOC: HO.HWS 11:29
PROVIDERS: PCP Physician Assistant; Visit Provider Advanced Practice Midwife
DX: Z01.419 Encounter for gynecological examination (general) (routine) without abnormal findings (principal)
CPT/HCPCS: 99395; 99459

== ENCOUNTER 2025-02-13 12:17 | Outpatient (REF) | payer OTHER, SELFPAY | END 2025-02-13 12:18 | disposition home or self-care (01) | LOC: HO.LAB 12:17 | PROVIDERS: PCP Physician Assistant; Visit Provider Student in an Organized Health Care Education/Training Program | DX: Z13.89 Encounter for screening for other disorder (principal) ==

== ENCOUNTER 2025-02-18 12:10 | Outpatient (REF) | payer OTHER, SELFPAY ==
[2025-02-18 13:24] LABS: Free T4 (Free Thyroxine) 0.90 ng/dL (0.71-1.85); Thyroid Stimulating Hormone 3.13 uIU/mL (0.32-4.0)
== END 2025-02-18 12:11 | disposition home or self-care (01) ==
LOC: HO.LAB 12:10
PROVIDERS: PCP Physician Assistant; Visit Provider Student in an Organized Health Care Education/Training Program
DX: E89.0 Postprocedural hypothyroidism (principal); Z98.890 Other specified postprocedural states; Z90.89 Acquired absence of other organs
CPT/HCPCS: 36415; 84439; 84443

== ENCOUNTER 2025-02-19 08:59 | Outpatient (AMB) | payer OTHER, SELFPAY ==
--- NOTE | 2025-02-19 09:05 | A.OFFVIS_ITS ---
Vital Signs 3 02/19/25 09:06 Height 4 ft 11 in Weight 116 lb 13.52 oz BMI 23.6 BP 122/78 Blood Pressure Location Rt brachial Position Sitting Pulse 87 Pulse Source Pulse Oximeter Pulse Oximetry (%) 95 Oxygen Delivery Method Room Air Intake Visit Reasons: Hyperthyroidism Intake Note: Patient presents today for follow-up on Hypothyroidism: Patient reports completing the ordered laboratory tests as instructed. No new complaints or concerns reported at this time. 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 Oralia Webber at [facility] on 03/25/2024, coming today for follow up. HPI from prior visit She has a 3.1 cm RMP thyroid nodule and underwent FNA biopsy of this 09/09/2020. Cytology was benign (bethesda category II). She had a repeat US 07/06/2021 which was largely unchanged. She was complaining of occasional dysphagia, occasional sensation of pressure in the neck particularly while lying flat. She also complains of mood swings. She denies any vocal hoarseness. She denies any symptoms of hyper or hypothyroidism. She denies any personal history of radiation to the head or the neck. She denies any family history of thyroid cancer. Mother has hypothyroidism. Repeat ultrasound in June 2023 showed enlarging size of the nodule up to 3.6 cm. Given she was symptomatic with enlarging size of the nodule, it was decided to refer her to Endocrine surgery. She underwent right thyroid lobectomy with Dr. Oralia Webber at [facility] on 03/25/2024. Pathology was benign. 08/15/2024: TSH 1.1, free T4 0.96 Interval history Reports feeling overall well, but some days she feel tired in the middle of the day She continues to endorse hair loss Reports constipation, has BM Q2days, usually diarrhea, reports straining prior to BM Reports cold intolerance during the day, but at night she might feel sweaty Thin nails Have regular periods Takes LT4 50 mcg daily in AM< appropriately Taking Vit D 25 mcg (1000 IU) daily Not planning any . Not on contraceptives. 2 pregnancies before Physical exam General: sitting comfortably in no acute distress HEENT: normocephalic/atraumatic, Neck: supple, symmetrical, well healed scar Cardiac: normal heart sounds Pulm: normal breath sounds B/L, no added breath sounds Abd: not distended, no tenderness Extremities: no edema, no signs of myxedema Laboratory Tests 11/14/24 02/18/25 12:35 12:14 25-OH Vitamin D Total 40.6 TSH 1.21 3.13 Free T4 1.07 0.90 Imaging US THYROID 07/14 CLINICAL INFORMATION: Nontoxic single thyroid nodule. COMPARISON: Thyroid ultrasound 06/22/2022 and 07/06/2021. Ultrasound-guided thyroid biopsy 09/09/2020. TECHNIQUE: Linear transducer grayscale and color Doppler examination with attention to the region of the thyroid. FINDINGS: SIZE: Measurements of the thyroid lobes and nodules are given in sagittal, anteroposterior and transverse dimensions respectively. Right Thyroid Lobe: 5.3 x 2.2 x 2.4 cm, volume 15.2 mL. Previously 4.7 x 2.1 x 2.1 cm, volume 10.7 mL. Parenchyma: The gland echotexture is heterogeneous. Thyroid vascularity is increased. Left Thyroid Lobe: 3.6 x 0.9 x 0.9 cm, volume 1.4 mL. Previously 0.6 x 0.9 x 0.9 cm, volume 1.5 mL. Parenchyma: The gland echotexture is homogeneous. Thyroid vascularity is normal. Isthmus: 0.08 cm in maximum AP dimension. Previously 0.2 cm. Estimated total number of nodules greater than or equal to 1 cm: 1. Dog Hair Clipper nodules are described as follows: 1. Location: Right mid pole. Size: 3.6 x 1.9 x 2.4 cm, volume 8.6 mL. Previously: 3.2 x 2.3 x 1.8 cm, volume 6.8 mL. Nodule characteristics: Composition: Solid/almost completely solid (2). Echogenicity: Isoechoic (1). Shape: Not taller than wide (0). Margins: Smooth (0). Echogenic Foci: None (0). ACR TI-RADS total points: 3 ACR TI-RADS category: 3 Significant change in size (>/= 20% in 2 dimensions and minimal increase of 2 mm or 50% or greater increase in volume): No Change in features: Not with accounting for differences in interobserver variability, as imaging findings appear similar to prior. NODES: No lymphadenopathy is seen in the tissue surrounding the thyroid gland. IMPRESSION: A 3.6 cm TR 3 right midpole thyroid nodule not increased in size from prior which was previously sampled in 2020, recommend correlation with prior pathology. Thyroid US: 07/06/2021 Right Thyroid Lobe: 4.7 x 1.8 x 2.6 cm, volume 11.2 mL. Parenchyma: The gland echotexture is homogeneous. Thyroid vascularity is normal. Left Thyroid Lobe: 4.1 x 0.7 x 1.1 cm, volume 1.5 mL. Parenchyma: The gland echotexture is homogeneous. Thyroid vascularity is normal. Isthmus: 0.2 cm in maximum AP dimension. Estimated total number of nodules greater than or equal to 1 cm: 1. Dog Hair Clipper nodules are described as follows: 1. Location: Right mid pole. ?? ? Size: 2.9 x 1.3 x 2.2 cm, volume 4.2 mL. ?? ? Previous: 3.1 x 1.5 x 1.9 cm, volume 4.6 mL. ?? ? Nodule characteristics: ?? ? Composition: Solid/almost completely solid (2). ?? ? Echogenicity: Hypoechoic (2). ?? ? Shape: Not taller than wide (0). ?? ? Margins: Smooth (0). ?? ? Echogenic Foci: None (0). ?? ? ACR TI-RADS total points: 4 ?? ? ACR TI-RADS category: 4 NODES: No lymphadenopathy is seen in the tissue surrounding the thyroid gland. Labs: Laboratory Tests 06/13/21 Unknown TSH 2.78 Laboratory Tests 09/04/22 07/03/23 15:05 16:45 25-OH Vitamin D Total 22 L TSH 2.84 Free T4 0.81 PFSH Medical History Hypothyroidism Vitamin D deficiency Migraine with aura Thyroid nodule Swollen neck Goiter Surgical History (Updated 02/19/25 @ 09:17 by GILBERT Dumont) History of lobectomy of thyroid History of thyroidectomy History of esophagogastroduodenoscopy (EGD) Family History Mother Diabetes Thyroid disease Father No problems noted. Other Mental health disorder Social History Housing: House Alcohol intake: never Patient Tobacco Use Status: Never used Tobacco e-Cigarette/Vaping Use: Never Used Second Hand Smoke Exposure: No service: No Current occupational status: employed Current occupation: [employer] Sexual orientation: Straight/Heterosexual Gender identity: Female Cognitive needs: No Hearing needs: No Vision needs: No Female Reproductive History Menstrual Age of Menarche: 13 Physical Exam Vital Signs: Last Vital Signs Pulse 87 02/19/25 09:06 BP 122/78 02/19/25 09:06 Pulse Ox 95 02/19/25 09:06 Oxygen Delivery Method Room Air 02/19/25 09:06 BMI result Body Mass Index 23.6 Assessment & Plan Assessment & Plan (1) Hypothyroidism: Code(s): E03.9 - Hypothyroidism, unspecified Category: Medical Qualifiers: Hypothyroidism type: postoperative Qualified Code(s): E89.0 - Postprocedural hypothyroidism (2) Thyroid nodule: Code(s): E04.1 - Nontoxic single thyroid nodule Category: Medical Plan: 28-year-old female with no family history of thyroid cancer, with no personal history of head or neck radiation with a right-sided 3.6 cm thyroid nodule, with benign cytology in 2020, with the enlarging thyroid nodule recently that was symptomatic, status post right lobectomy with Dr. Oralia Webber at [facility] on 03/25/2024. With benign pathology. Labs from 04/26/2024 showed TSH elevated at 7.27 with normal free T4 of 0.93, repeat labs again showed TSH worsened in elevated at 10.79, free T4 of 0.81 05/12/2024: Started on levothyroxine 50 mcg daily. Most recent lab results from July 2024 showed normal TSH and free T4., she is still does have symptoms of tiredness, however her blood work is okay so at this time I will keep her on the same dose. We will check another set of labs in 3 months. 02/18/2025: TSH 3.13, free T4 0.90. She continues to experience fatigue, as well as hair loss. She does have other symptoms are not fully consistent with hypothyroidism like feeling called during the day but feeling hot/sweaty during the night. Her labs do look within normal range. We discussed and she is okay with continuing the same dose for now. Plan: -continue levothyroxine 50 mcg daily -repeat TSH, free T4 in 6 months -follow up in 6 months (3) Vitamin D deficiency: Code(s): E55.9 - Vitamin D deficiency, unspecified Category: Medical Plan: Vitamin-D noted to be low at 22 from 2022. She is on vitamin D 1000 units daily for the past 3-4 months. Repeat vitamin-D level noted to be low at 22.4 from 05/17. Plan: Continue vitamin-D 1000 units daily -we will check vitamin-D level as well with the next set of labs. . Plan 20 minutes spent reviewing previous records, labs, imaging, education and documenting in the chart Medications: Refilled 2 cholecalciferol (vitamin D3) 25 mcg PO DAILY 30 caps 9RF 1 month levothyroxine 50 mcg PO DAILY 90 tabs 3RF Coding Level of Care Code Est Pt Level 3 (25732) Diagnoses Postoperative hypothyroidism E89.0 Hypothyroidism type: postoperative Thyroid nodule E04.1 Vitamin D deficiency E55.9
[2025-02-19 09:06] VITALS: BP 122/78; PULSE 87; O2SAT 95; BMI 23.6
== END 2025-02-19 09:25 | disposition home or self-care (01) ==
LOC: HO.ENCR 09:00
PROVIDERS: PCP Physician Assistant; Visit Provider Student in an Organized Health Care Education/Training Program
DX: E89.0 Postprocedural hypothyroidism (principal); E04.1 Nontoxic single thyroid nodule; E55.9 Vitamin D deficiency, unspecified
CPT/HCPCS: 99213